=== PATIENT | female | born 1955 | race Caucasian/White ===

== ENCOUNTER 2018-02-18 15:42 | Inpatient (IN) | payer OTHER ==
[~2018-02-18] VITALS: Ht 165.1 cm; Wt 84.8 kg
[~2018-02-18 15:42] MED LIST: AUGMENTIN 500M500 MG PO; ROBITUSSIN W/CO10 ML PO
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
[2018-02-18 16:27] LABS: ABSOLUTE BASOPHIL COUNT 0.2 /CUMM (0.0-0.2); ABSOLUTE EOSINOPHIL COUNT 0 /CUMM (0.0-0.7); ABSOLUTE GRANULOCYTE CT 10.8 /CUMM (1.4-6.5); ABSOLUTE LYMPH COUNT 0.4 /CUMM (1.2-3.4); ABSOLUTE MONOCYTE COUNT 0.5 /CUMM (0.10-0.60); BASOPHIL % 1.4 % (0.0-2.0); EOSINOPHIL % 0.2 % (0-5); HEMATOCRIT 31.3 % (37-47); MEAN CORPUSCULAR HGB 31.2 PG (27.0-31.0); MEAN CORPUSCULAR HGB CONC 33.4 G/DL (33.0-37.0); MEAN CORPUSCULAR VOLUME 93.3 FL (81.0-99.0); MEAN PLATELET VOLUME 7.4 FL (7.4-10.4); PLATELET COUNT 381 /CUMM (130-400); RBC DISTRIBUTION WIDTH 15.3 % (11.5-14.5); RED BLOOD CELL CT 3.35 /CUMM (4.20-5.40); WHITE BLOOD CELL COUNT 11.9 /CUMM (4.8-10.8)
[2018-02-18 16:48] LABS: GRANULOCYTE % 90.2 % (42.2-75.2)
--- NOTE | 2018-02-18 17:10 | CT SCAN REPORT ---
EXAMINATION: CT HEAD WITHOUT CONTRAST CLINICAL INFORMATION: Tremors and disorientation. COMPARISON: None TECHNIQUE: Contiguous axial imaging was performed from the skull base to vertex without intravenous administration of contrast. The study is somewhat limited due to motion artifacts. DLP: 770.4 mGy-cm FINDINGS: There is no evidence of acute intracranial hemorrhage or territorial infarction. No abnormal mass effect or midline shift is seen. Yoon to white matter differentiation is well preserved. No extra-axial fluid collections are identified. The ventricles are normal in size. There is no abnormal attenuation within the brain parenchyma. The osseous structures and soft tissues are normal. The mastoid air cells and visualized portions of the paranasal sinuses are well aerated. IMPRESSION: No acute intracranial pathology.
[2018-02-18] MEDS ORDERED: PERCOCET 7.5-31 EACH PO (18:21)
[2018-02-18] MEDS ORDERED: CYCLOBENZAPRINE10 M1 PO (18:21)
[2018-02-18] MEDS ORDERED: MORPHINE SULFAT30 M3 PO (18:22)
[2018-02-18] MEDS ORDERED: EFFEXOR XR150 M1 PO (18:22)
[2018-02-18] MEDS ORDERED: LISINOPRIL-HCT1 EACH PO (18:22)
[2018-02-18] MEDS ORDERED: LIPITOR20 M2 PO (18:22)
[2018-02-18 18:35] LABS: PT 10.7 SEC (9.4-12.5); PTT 31 SEC (25-37)
--- NOTE | 2018-02-18 19:41 | RADIOLOGY REPORT ---
EXAMINATION: XR PORTABLE CHEST CLINICAL INFORMATION: Renal failure. COMPARISON: None TECHNIQUE: Portable frontal view of the chest was obtained. FINDINGS: The lungs are hypoexpanded with increased bilateral hilar markings suggestive of increased pulmonary vascularity. Heart size is borderline enlarged. No consolidation seen. No gross bony abnormality seen. IMPRESSION: Borderline cardiomegaly with increased pulmonary vascularity suggestive of mild congestion. The lungs are hypoexpanded but clear.
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
--- NOTE | 2018-02-18 23:45 | Sepsis Event Note ---
Sepsis Event Note Severe Sepsis Severe Sepsis Present: Yes Septic Shock Septic Shock Present: Yes Sepsis Focused Exam Sepsis Cardiac Exam: Tachycardia Sepsis Resp Exam: dec breath sounds b/l Sepsis Cap Refill Exam: <2 Sec Sepsis Peripheral Pulse Exam: Weak Sepsis Peripheral Pulse Location: Radial Sepsis Skin Exam (color): Flushed Skin Temp/Moisture Exam: Warm/Dry
--- NOTE | 2018-02-18 23:53 | RADIOLOGY REPORT ---
EXAMINATION: XR PORTABLE CHEST CLINICAL INFORMATION: Congestion COMPARISON: Radiograph from earlier today TECHNIQUE: Portable frontal view of the chest was obtained. FINDINGS: Elevation of the right hemidiaphragm. Central vascular prominence without overt edema. No pleural effusion or pneumothorax. No dense consolidation. The cardiomediastinal silhouette is unchanged. IMPRESSION: Central vascular prominence without overt edema.
[2018-02-19] VITALS: BP 78/00
[2018-02-19 02:50] LABS: ABSOLUTE BASOPHIL COUNT 0.1 /CUMM (0.0-0.2); ABSOLUTE EOSINOPHIL COUNT 0 /CUMM (0.0-0.7); ABSOLUTE GRANULOCYTE CT 11.5 /CUMM (1.4-6.5); ABSOLUTE LYMPH COUNT 0.7 /CUMM (1.2-3.4); BASOPHIL % 0.7 % (0.0-2.0); EOSINOPHIL % 0.2 % (0-5); GRANULOCYTE % 86.3 % (42.2-75.2); HEMATOCRIT 29.9 % (37-47); MEAN CORPUSCULAR HGB 31.2 PG (27.0-31.0); MEAN CORPUSCULAR HGB CONC 32.9 G/DL (33.0-37.0); MEAN CORPUSCULAR VOLUME 94.8 FL (81.0-99.0); MEAN PLATELET VOLUME 7.3 FL (7.4-10.4); PLATELET COUNT 403 /CUMM (130-400); RBC DISTRIBUTION WIDTH 15.6 % (11.5-14.5); RED BLOOD CELL CT 3.16 /CUMM (4.20-5.40); WHITE BLOOD CELL COUNT 13.3 /CUMM (4.8-10.8)
--- NOTE | 2018-02-19 06:19 | Proc Note Internal Medicine ---
Medicine Procedure Procedure Date: 02/19/18 Medical Procedure(s): central venous cath place Estimated Blood Loss: less than 50ml Anesthesia: local monitored anesthesi Procedure Findings: 02/19/2018 0100 around A time-out was completed verifying correct patient, procedure, site, positioning , and special equipment if applicable. The patients right ingunial was prepped and draped in sterile fashion. 1% Lidocaine was used to anesthetize the surrounding skin area. A triple lumen catheter was introduced into the the right femoral vein under ultrasound guidance. The catheter was threaded smoothly over the guide wire and appropriate blood return was obtained. Each lumen of the catheter was evacuated of air and flushed with sterile saline. The catheter was then sutured in place to the skin and a sterile dressing applied. Perfusion to the extremity distal to the point of catheter insertion was checked and found to be adequate. Attending and resident were present for the entire procedure.
--- NOTE | 2018-02-19 06:59 | RADIOLOGY REPORT ---
EXAMINATION: XR PORTABLE CHEST CLINICAL INFORMATION: Congestion COMPARISON: 02/18/2018. TECHNIQUE: Portable frontal view of the chest was obtained. FINDINGS: Cardiac leads overlie the chest. Elevated right hemidiaphragm. Decreased Central vascular prominence. No pleural effusion or pneumothorax. No dense consolidation. The cardiomediastinal silhouette is within normal limits. No acute osseous abnormality. IMPRESSION: Elevated right hemidiaphragm. Improvement of prior vascular congestion.
[2018-02-19 07:28] LABS: ABSOLUTE BASOPHIL COUNT 0 /CUMM (0.0-0.2); ABSOLUTE EOSINOPHIL COUNT 0 /CUMM (0.0-0.7); ABSOLUTE GRANULOCYTE CT 8.4 /CUMM (1.4-6.5); ABSOLUTE LYMPH COUNT 0.6 /CUMM (1.2-3.4); ABSOLUTE MONOCYTE COUNT 0.8 /CUMM (0.10-0.60); BASOPHIL % 0 % (0.0-2.0); EOSINOPHIL % 0.3 % (0-5); HEMATOCRIT 30.1 % (37-47); MEAN CORPUSCULAR HGB 31.6 PG (27.0-31.0); MEAN CORPUSCULAR HGB CONC 32.9 G/DL (33.0-37.0); MEAN CORPUSCULAR VOLUME 95.9 FL (81.0-99.0); MEAN PLATELET VOLUME 7.2 FL (7.4-10.4); PLATELET COUNT 363 /CUMM (130-400); RBC DISTRIBUTION WIDTH 16.2 % (11.5-14.5); RED BLOOD CELL CT 3.14 /CUMM (4.20-5.40); WHITE BLOOD CELL COUNT 9.8 /CUMM (4.8-10.8)
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
[2018-02-19 08:00] VITALS: BP 122/60
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
--- NOTE | 2018-02-19 09:46 | RADIOLOGY REPORT ---
EXAMINATION: XR PORTABLE CHEST CLINICAL INFORMATION: ET tube position. COMPARISON: Chest x-ray dated 02/19/2018 and several other older exams. TECHNIQUE: Portable AP semierect view of the chest was obtained. FINDINGS: An endotracheal tube is in place with tip approximately 2.7 cm above the manuel. Enteric tube is seen coursing into the abdomen with tip not included. Multiple EKG leads overlie the chest. Low lung volumes are seen with slight elevation of the right hemidiaphragm and bibasilar and left midlung linear reticular opacities, consistent with subsegmental atelectasis. Mild central vascular congestion is seen without overt pulmonary edema. No dense consolidation, effusion or pneumothorax is seen. Bony structures are grossly unremarkable. IMPRESSION: 1. Endotracheal tube tip approximately 2.7 cm above the manuel. 2. Enteric tube courses into the abdomen with tip not included. 3. Low lung volumes with left midlung and bibasilar linear atelectatic changes. 4. Mild central vascular congestion, similar to prior exam. No overt pulmonary edema.
--- NOTE | 2018-02-19 13:06 | ECHOCARDIOGRAM REPORT ---
FÉLIX MONTE Age: 62 : 1955 Gender: F Exam Date: 02/19/2018 11:34 Exam Location: [facility] Ht (in): 65 Wt (lb): 170 BSA: 1.90 BP: 143 / 75 Ordering Physician: Han Carrasquillo MD Referring Physician: Han Carrasquillo MD Technologist: Chaparro Yarbrough [facility] Room Number: 114-1 Indications: Hypotension Rhythm: Sinus Technical Quality: Fair, Technically difficult study FINDINGS Left Ventricle Normal global left ventricular size, wall thickness, systolic function with no obvious regional wall motion abnormalities. Normal left ventricular ejection fraction estimated at 60-65%. Right Ventricle Normal right ventricular size and function. Right Atrium Normal right atrial size. Left Atrium Left atrial size at the upper limits of normal. Mitral Valve Structurally normal mitral valve. Aortic Valve Trileaflet aortic valve. Focal thickening of the aortic valve cusps. No aortic stenosis. No aortic regurgitation. Tricuspid Valve Tricuspid valve not well visualized, grossly normal. Trace to mild tricuspid regurgitation. Right ventricular systolic pressure estimated at 36 mmHg. Pulmonic Valve Pulmonic valve not well visualized, grossly normal. Pericardium Minimal pericardial effusion (normal variant). Great Vessels Normal size aortic root and proximal ascending aorta. CONCLUSIONS 1. This was a technically difficult examination 2. Minimal aortic sclerosis is present with no valvular stenosis or insufficiency 3. The mitral valve appears normal 4. A physiologic pericardial effusion is present which is hemodynamically insignificant 5. The left ventricular chamber size and systolic function appear normal. 6. Minimal to mild tricuspid insufficiency is present with no evidence of pulmonary hypertension Malik Ray M.D. (Electronically Signed) Final Date: 19 February 2018 13:05 MEASUREMENTS (Male / Female) Normal Values 2D ECHO LV Diastolic Diameter PLAX 4.2 cm 4.2 - 5.9 / 3.9 - 5.3 cm LV Systolic Diameter PLAX 2.9 cm 2.1 - 4.0 cm LV Fractional Shortening PLAX 31.0 % 25 - 46 % LV Ejection Fraction 2D Teich 59.0 % IVS Diastolic Thickness 0.9 cm LVPW Diastolic Thickness 1.0 cm LV Relative Wall Thickness 0.5 RV Internal Dim ED PLAX 2.9 cm 1.9 - 3.8 cm LVOT Diameter 2.0 cm Aortic Root Diameter 3.0 cm LA Systolic Diameter LX 3.3 cm 3.0 - 4.0 / 2.7 - 3.8 cm LA Volume 41.0 cm 18 - 58 / 22 - 52 cm Ascending Aorta Diameter 3.1 cm DOPPLER AV Peak Velocity 207.0 cm/s AV Peak Gradient 17.1 mmHg AV Mean Velocity 126.0 cm/s AV Mean Gradient 8.0 mmHg AV Velocity Time Integral 36.7 cm LVOT Peak Velocity 127.0 cm/s LVOT Peak Gradient 6.5 mmHg LVOT Mean Velocity 83.2 cm/s LVOT Mean Gradient 3.0 mmHg LVOT Velocity Time Integral 23.5 cm LVOT Stroke Volume 73.8 cm AV Area Cont Eq vti 2.0 cm AV Area Cont Eq pk 1.9 cm MV Peak Velocity 109.0 cm/s MV Peak Gradient 4.8 mmHg MV Mean Velocity 72.6 cm/s MV Mean Gradient 2.0 mmHg Mitral E Point Velocity 82.4 cm/s Mitral A Point Velocity 89.8 cm/s Mitral E to A Ratio 0.9 MV PHT Velocity 102.0 cm/s MV Deceleration [place] 425.0 cm/s MV Pressure Half Time 72.0 ms MV Area PHT 3.1 cm MV Deceleration Time 236.0 ms TR Peak Velocity 267.0 cm/s TR Peak Gradient 28.5 mmHg Right Atrial Pressure 10.0 mmHg Pulmonary Artery Systolic Pressure 38.5 mmHg Right Ventricular Systolic Pressure 38.5 mmHg PV Peak Velocity 130.0 cm/s PV Peak Gradient 6.8 mmHg PV Mean Velocity 88.0 cm/s PV Mean Gradient 4.0 mmHg PV Velocity Time Integral 26.2 cm LV E' Lateral Velocity 12.2 cm/s Mitral E to LV E' Lateral Ratio 6.8 LV E' Septal Velocity 6.9 cm/s Mitral E to LV E' Septal Ratio 11.9
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
[2018-02-19 16:00] VITALS: BP 117/57
--- NOTE | 2018-02-19 16:31 | Event Note ---
Event Note Event Note: I have personally seen and examined the patient and have reviewed the patient's chart once again. The patient is minimally responsive, no longer twitching and remains on a propofol drip. Her ventilator settings have been changed and a follow-up blood gas was much improved noting the pH is 7.39, PCO2 25, PO2 135 and a bicarb of 14. I discussed the issues with the patient's and updated him on her current clinical status. The patient is in the process of going for Beny catheter placement. Problems: 1. Acute respiratory failure, on mechanical ventilation, secondary to inability to protect airway and compensate for ongoing acidosis. 2. Combined metabolic and nonmetabolic anion gap acidosis. The patient has evidence of rhabdomyolysis and acute renal failure. 3. Hypovolemic shock. 4. Acute kidney injury in the setting of recent trauma with elevated CPK. It is not clear if the patient's CPK was initially higher and improved which could have caused renal failure. Additionally the patient was taking lisinopril, hydrochlorothiazide and NSAIDs. 5. Toxic metabolic encephalopathy, uremic encephalopathy. 6. Possible aspiration pneumonia/pneumonitis. 7. Chronic pain, on chronic opiate regimen. 8. Mildly positive troponin, likely demand ischemia. Plan: * Continue propofol for an SAS of 3. * Continue current ventilator settings, however decrease respiratory rate to 14 breath/min. * No need for repeat EKG. * Continue with aggressive IV hydration. * Follow-up recommendations from nephrology, appreciate input. * Dialysis if recommended by nephrology. * Continue to get labs every 6 hours today. * Monitor electrolytes closely and adjust as necessary. * Wean levofed down to off, maintain systolic blood pressure greater than 90 mmHg. * Follow-up culture data. * Continue vancomycin and moxifloxacin empirically. * Monitor on seizure precautions. * Will follow-up neurology's recommendations. * Check EKGs daily, consult cardiology if any cardiac issues arise. * Vent bundle/DVT and GI prophylaxis at all times. * The patient remains critically ill and requires close follow-up. * Dr. Bateman will be covering for the weekend.
--- NOTE | 2018-02-19 16:43 | INTERVENTIONAL RADIOLOGY RPT ---
PROCEDURE: ULTRASOUND AND FLUOROSCOPICALLY GUIDED RIGHT INTERNAL JUGULAR VEIN TEMPORARY DIALYSIS CATHETER PLACEMENT INTERVENTIONAL RADIOLOGIST: Moe Harman M.D. CLINICAL HISTORY: 62-year-old female with acute renal failure. Request made for placement of temporary dialysis catheter. COMPARISON: Same day chest x-ray MEDICATION: 1% lidocaine was used for local anesthetic. FLUOROSCOPY TIME: 0.8 minutes NUMBER OF IMAGES: 4 images TECHNIQUE: Informed consent was obtained from the patient's prior to the procedure. During this process, the procedure and potential alternatives were explained along with the intended outcome and benefits. The risks of the procedure, including the possibility of an unsuccessful procedure, as well as the risk of not doing the procedure were discussed. The patient's was given the opportunity to ask questions regarding the procedure. A consent form which documents this discussion was placed in the medical record. A timeout procedure was performed. Following informed consent the patient was placed supine on the fluoroscopic table. The right neck and chest were prepped and draped in usual sterile fashion. All elements of maximal sterile barrier technique were followed including use of cap, mask, sterile gown, sterile gloves, a sterile full body drape and hand hygiene. The skin was prepared with 2% chlorhexidine for cutaneous antisepsis and sterile ultrasound preparation with sterile gel and probe cover was performed when applicable. Using ultrasound guidance the right internal jugular vein was localized. Ultrasound was utilized to assess the vascular structures for access. A standard puncture into the right internal jugular vein was performed with a Micro-Stick system. The wire was advanced into the IVC to confirm venous placement. Over the wire dilatation was performed and a temporary hemodialysis catheter was advanced over the wire. Catheter terminates in the proximal right atrium. Silk suture was utilized for catheter securement. The patient tolerated the procedure well. The patient was transferred back to the floor in stable condition. ULTRASOUND-GUIDED VASCULAR ACCESS: Ultrasound was used to identify the right internal jugular vein. The right internal jugular vein was confirmed to be patent. Real time imaging confirmed needle access into the right internal jugular vein. An image was saved for permanent recording in PACS. IMPRESSION: Successful placement of temporary hemodialysis catheter via the right internal jugular vein.
--- NOTE | 2018-02-19 18:51 | ELECTROENCEPHALOGRAM REPORT ---
Electroencephalogram Report Electroencephalogram Results Date of service: 02/19/18 Attending MD: Nikkie Menezes MD Ssas Developer: Lety Fair EEG Number: [id number] Test Utilizes: 10-20 system, 21 lead 18 channel digital recording Pertinent Hx/Physical/Neuro Findings/Clin Diagnosis: Altered mental status with twitching of extremities, r/o seizures Inpatient Medications: Current Medications Sig/Davon Start time Last Medication Dose Route Stop Time Status Admin Albuterol Sulfate 3 ML ONCE ONE 02/18 2315 DC INH 02/19 2316 Atorvastatin Calcium 20 MG DAILY 02/19 900 CAN PO Dextrose 25 GM ONCE ONE 02/19 0130 DC 02/19 IV 02/19 013 0126 Dextrose 25 GM ONCE ONE 02/18 2330 DC IV 02/18 233 Dextrose 0 .STK-MED ONE 02/18 2318 DC IV Dextrose 25 GM ONCE ONE 02/18 2145 DC 02/18 IV 02/18 2146 2320 Heparin Sodium 0 .STK-MED ONE 02/19 1440 DC (Porcine) IV Heparin Sodium 5,000 UNIT Q8 02/18 2200 DC 02/19 (Porcine) SC 0547 Insulin Human Regular 10 UNITS ONCE ONE 02/18 233 DC IV 02/18 2331 Insulin Human Regular 0 .STK-MED ONE 02/18 231 DC .ROUTE Insulin Human Regular 10 UNITS ONCE ONE 02/18 2145 DC / IV 02/18 2146 2320 Lidocaine 0 .STK-MED ONE 02/19 1440 DC .ROUTE Lorazepam 0.5 MG ONCE ONE 02/19 0315 DC 02/19 IV 02/19 0316 0311 Lorazepam 0 .STK-MED ONE 02/19 0230 DC .ROUTE Lorazepam 1 MG ONCE ONE 02/18 2230 DC / IV 02/18 2231 2240 Lorazepam 0 .STK-MED ONE 02/18 2224 DC .ROUTE Moxifloxacin HCl 400 MG Q24H 02/20 0100 AC N/A 1 UNIT IV Moxifloxacin HCl 400 MG Q24H 02/19 2300 CAN IV Moxifloxacin HCl 400 MG Q24H 02/18 2315 DC 02/19 IV 02/18 2316 0110 Non-Formulary 0 SEE ADMIN CRITERIA 02/20 0845 CAN Medication ANY Norepinephrine 0 .STK-MED ONE 02/19 08 DC IV Norepinephrine 8 MG Q24H 02/19 0245 AC 08 Dextrose/Water 500 ML IV 0358 Norepinephrine 4 MG Q24H / 0015 DC 02/18 Dextrose/Water 250 ML IV 2315 Norepinephrine 0 .STK-MED ONE 02/18 2312 DC IV Propofol 1,000 MG Q12H 02/19 0900 AC 08 N/A 1 UNIT IV 0941 Propofol 0 .STK-MED ONE 02/19 0855 DC IV Sodium Bicarbonate 50 MEQ ONCE ONE 02/19 0015 DC 02/19 IV 02/19 0016 0301 Sodium Chloride 1,000 ML BOLUS ONE 02/18 2300 DC / IV 02/19 0059 2322 Sodium Chloride 1,000 ML BOLUS ONE 02/18 2300 DC / IV 02/18 2359 2321 Sodium Chloride 1,000 ML BOLUS ONE 02/18 2300 DC / IV 02/18 2359 0025 Sodium Chloride 1,000 ML BOLUS ONE 02/18 2145 DC / IV 02/18 2344 2240 Sodium Chloride 1,000 ML Q6H 02/18 2145 AC 02/19 IV 0941 Sodium Chloride 1,000 ML BOLUS ONE 02/18 1815 DC 08/ IV 02/18 2014 1825 Sodium Polystyrene 60 ML ONCE ONE 02/18 2330 DC Sulfonate IN 02/18 2331 Sodium Polystyrene 60 ML ONCE ONE 02/18 2145 DC / Sulfonate IN 02/18 2146 2336 Succinylcholine 0.3 MG ONCE ONE 02/19 0915 CAN Chloride IV 02/19 0916 Succinylcholine 0.1 MG ONCE ONE 02/19 0900 CAN Chloride IV 02/19 0901 Vancomycin HCl 1,000 MG Q24H 02/19 2300 AC Dextrose/Water 250 ML IV Vancomycin HCl 1,000 MG ONCE ONE 02/18 2315 DC 02/19 Sodium Chloride 250 ML IV 02/19 0014 0040 Vecuronium Parsons 4 MG ONCE ONE 02/19 1015 DC 02/19 IV 02/19 1016 0900 Venlafaxine HCl 150 MG 0800 02/19 0800 CAN PO Interpretation: A portable recording was done in the MICU on this intubated patient receiving diprovan The background is composed of moderate amplitude generalized slow activity in the theta and delta frequency range. No focal, lateralized or epileptiform abnormalities are found Activation procedures were deferred Impression: EEG abnormal due to moderate to marked generalized slowing c/w a diffuse metabolic encephalopathy. No epileptiform abnormalities.
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
[2018-02-19 22:53] LABS: ABSOLUTE BASOPHIL COUNT 0.1 /CUMM (0.0-0.2); ABSOLUTE EOSINOPHIL COUNT 0 /CUMM (0.0-0.7); ABSOLUTE GRANULOCYTE CT 4.6 /CUMM (1.4-6.5); ABSOLUTE LYMPH COUNT 0.9 /CUMM (1.2-3.4); ABSOLUTE MONOCYTE COUNT 0.6 /CUMM (0.10-0.60); BASOPHIL % 1.3 % (0.0-2.0); EOSINOPHIL % 0.4 % (0-5); GRANULOCYTE % 74.2 % (42.2-75.2); HEMATOCRIT 25.4 % (37-47); MEAN CORPUSCULAR HGB 31.2 PG (27.0-31.0); MEAN CORPUSCULAR HGB CONC 33.5 G/DL (33.0-37.0); MEAN CORPUSCULAR VOLUME 93.4 FL (81.0-99.0); MEAN PLATELET VOLUME 7.4 FL (7.4-10.4); PLATELET COUNT 279 /CUMM (130-400); RBC DISTRIBUTION WIDTH 15.7 % (11.5-14.5); RED BLOOD CELL CT 2.72 /CUMM (4.20-5.40); WHITE BLOOD CELL COUNT 6.2 /CUMM (4.8-10.8)
[2018-02-20] VITALS: BP 104/58
[2018-02-20 05:15] LABS: ABSOLUTE BASOPHIL COUNT 0 /CUMM (0.0-0.2); ABSOLUTE EOSINOPHIL COUNT 0.1 /CUMM (0.0-0.7); ABSOLUTE LYMPH COUNT 0.9 /CUMM (1.2-3.4); ABSOLUTE MONOCYTE COUNT 0.7 /CUMM (0.10-0.60); BASOPHIL % 0.4 % (0.0-2.0); EOSINOPHIL % 1.1 % (0-5); GRANULOCYTE % 71.3 % (42.2-75.2); HEMATOCRIT 25.6 % (37-47); MEAN CORPUSCULAR HGB 31.2 PG (27.0-31.0); MEAN CORPUSCULAR HGB CONC 33.4 G/DL (33.0-37.0); MEAN CORPUSCULAR VOLUME 93.4 FL (81.0-99.0); MEAN PLATELET VOLUME 7.4 FL (7.4-10.4); PLATELET COUNT 289 /CUMM (130-400); RBC DISTRIBUTION WIDTH 15.9 % (11.5-14.5); RED BLOOD CELL CT 2.74 /CUMM (4.20-5.40); WHITE BLOOD CELL COUNT 5.7 /CUMM (4.8-10.8)
[2018-02-20 08:00] VITALS: BP 106/64
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
--- NOTE | 2018-02-20 09:26 | RADIOLOGY REPORT ---
EXAMINATION: XR PORTABLE CHEST CLINICAL INFORMATION: Lines and tubes check. Intubated patient. COMPARISON: Several prior chest x-rays, most recent of which is dated 02/19/2018. TECHNIQUE: Portable AP erect view of the chest was obtained. FINDINGS: Evaluation is limited with the lung apices barely included on the exam and low lung volumes seen. EKG leads overlie the chest. An enteric tube is seen with tip in region of the gastric antrum. The endotracheal tube is low in position with tip extending to within 1 cm of the manuel. A right jugular line is in place with tip poorly visualized but extending to the distal SVC. The cardiomediastinal silhouette is within normal limits in size. Low lung volumes are seen with slight asymmetric elevation of the right hemidiaphragm. There is central vascular congestion and bibasilar atelectatic change. No focal consolidation, effusion or pneumothorax is seen. Bony structures grossly unremarkable. IMPRESSION: 1. Endotracheal tube tip is low in position extending to within 1 cm of the manuel. Repositioning of the endotracheal tube is advised with repeat radiograph taken to reassess position. 2. Enteric tube extends into the region of the gastric antrum. 3. Low lung volumes with bibasilar atelectasis and mild central vascular congestion. No focal pneumonia or evidence of edema. This result was discussed with Dr. Presley 02/20/2018, 920 AM and it was ascertained that the content and urgency of this report was understood at the time of direct communication.
--- NOTE | 2018-02-20 11:34 | RADIOLOGY REPORT ---
EXAMINATION: XR PORTABLE CHEST CLINICAL INFORMATION: ET tube position. COMPARISON: Chest x-ray from earlier today. TECHNIQUE: Portable AP semierect view of the chest was obtained. FINDINGS: The endotracheal tube tip is now seen approximately 2.4 cm above the manuel. Enteric tube is seen projected in region of the gastric antrum/pylorus. Right jugular central venous line extends into the mid SVC with tip poorly visualized. The cardiomediastinal silhouette is normal. Low lung volumes are seen with bibasilar opacities, consistent with atelectasis. Mild central vascular congestion is seen. Evaluation of lungs suboptimal due to overexposure of the film. Bony structures grossly unremarkable. IMPRESSION: 1. Endotracheal tube tip approximately 2.4 cm above the manuel. 2. Enteric tube tip projects in region of the gastric antrum/pylorus. 3. Right jugular central venous line tip in region of the mid SVC. 4. Low lung volumes with bibasilar atelectasis and mild central vascular congestion.
[2018-02-20 11:55] VITALS: BP 122/68
--- NOTE | 2018-02-20 12:58 | PN- Nephrology ---
Assessment/Plan Nephrology Assessment: TR - Miraculously resolved with time and IVF - must have been multifactorial ATN (2/2 mild rhabdo, NSAID use, RAAS inhibition, diuretic - all while volume depleted) + pre-renal azotemia. SCr still slightly above baseline so I think she can continue on IVF as tolerated and while NPO on vent but may want to decrease the rate. Clearly her dialysis catheter can be taken out by IR non- urgently on Thursday. Suggestion: -Can remove dialysis catheter (can have IR remove on Thursday) -Decrease rate of IVF to 75cc/hr - stop if worsened oxygenation Please call [phone] with ?'s Subjective Subjective: SCr down to 1.2 4.6L UOP yesterday; 1.4L UOP today - continues on IVF Remains intubated/sedated Objective Vital Signs and I&Os Vital Signs Date Time Temp Pulse Resp B/P B/P Pulse O2 O2 Flow FiO2 Mean Ox Delivery Rate 02/20 1215 30 02/20 1200 100 Ventilator 30% 02/20 1155 98.2 89 18 122/68 100 Ventilator 30% 02/20 0840 35 02/20 0800 100 Ventilator 35% 02/20 0800 97.6 92 18 106/64 100 Ventilator 35% 02/20 0543 35 02/20 0400 96 Ventilator 35% 02/20 0307 35 02/20 0259 99 18 104/57 /11 0041 35 / 0000 96 Ventilator 35% / 0000 98.6 106 18 104/58 96 Ventilator 35% / 2154 35 08/ 2000 97 Ventilator 35% 02/19 1859 35 08/10 1634 35 08/ 1600 99 Ventilator 35% /10 1600 99.0 105 17 117/57 99 Ventilator 35% /10 1600 99.0 105 19 117/57 99 Ventilator 35% Intake & Output 02/20 1600 02/20 0400 02/19 1600 02/19 0400 02/18 1600 02/18 0400 Intake Total 1349 1641 7616.6 Output Total 1540 2300 2575 210 Balance -191 659 5041.6 -210 Intake, IV 1349 1641 7556.6 Intake, Oral 0 0 Intake, Other 60 Number 0 Bowel Movements Output, 100 50 150 Gastric Drainage Output, Urine 1440 2250 2425 210 Patient 173 lb 170 lb 130 lb Weight Weight Bed scale Standing Scale Reported by Patient Measurement Method Physical Exam: Gen - intubated/sedated HEENT - +ETT CV - RRR, no m/r/g Chest - clear mechanical breath sounds anteriorly Abd - soft, NTND Ext - warm, no significant pitting edema Neuro - AOX3, grossly nonfocal Current Medications: Current Medications Sig/Davon Start time Last Medication Dose Route Stop Time Status Admin Dextrose 25 GM ONCE ONE 02/20 900 DC 02/20 IV 02/20 09 0909 Fentanyl Citrate 0 .STK-MED ONE 02/20 09 DC .ROUTE Fentanyl Citrate 1,000 MCG Q24H 02/20 900 02/20 Dextrose/Water 250 ML IV 1050 Heparin Sodium 0 .STK-MED ONE 02/19 144 DC (Porcine) IV Lidocaine 0 .STK-MED ONE 02/19 144 DC .ROUTE Lorazepam 2 MG ONE ONE 02/19 2300 DC 02/19 IV 02/19 230 2304 Lorazepam 0 .STK-MED ONE 02/19 225 DC .ROUTE Moxifloxacin HCl 400 MG Q24H 02/20 0100 DC 02/20 N/A 1 UNIT IV 0119 Norepinephrine 8 MG Q24H 02/19 0245 DC 02/19 Dextrose/Water 500 ML IV 0358 Pantoprazole Sodium 40 MG DAILY 02/20 900 02/20 IV 0906 Propofol 0 .STK-MED ONE 02/20 0307 DC IV Propofol 1,000 MG Q12H 02/19 09 02/20 N/A 1 UNIT IV 0910 Sodium Chloride 1,000 ML Q6H 02/18 2145 02/20 IV 0910 Vancomycin HCl 1,000 MG Q24H 02/20 0300 DC 02/20 Sodium Chloride 250 ML IV 0258 Vancomycin HCl 1,000 MG Q24H 02/19 2300 DC Dextrose/Water 250 ML IV Results Pertinent Lab Results: Laboratory Tests 02/20 02/19 0410 2120 Chemistry Sodium (137 - 145 mmol/L) 140 137 Potassium (3.5 - 5.1 mmol/L) 4.2 4.6 Chloride (98 - 107 mmol/L) 114 H 111 H Carbon Dioxide (22 - 30 mmol/L) 20 L 20 L Anion Gap (5 - 16) 6 6 BUN (7 - 17 mg/dL) 49 H 64 H Creatinine (0.5 - 1.0 mg/dL) 1.2 H 1.9 H Estimated GFR (>60 ml/min) 46 L 27 L Glucose (65 - 99 mg/dL) 82 77 Calcium (8.4 - 10.2 mg/dL) 7.4 L 7.3 L Phosphorus (2.5 - 4.5 mg/dL) 3.0 3.7 Magnesium (1.6 - 2.3 mg/dL) 2.8 H 2.8 H Total Bilirubin (0.2 - 1.3 mg/dL) 0.4 0.4 AST (14 - 36 U/L) 43 H 49 H ALT (9 - 52 U/L) 60 H 62 H Albumin (3.5 - 5.0 g/dL) 2.7 L 2.7 L Hematology CBC w Diff NO MAN DIFF REQ NO MAN DIFF REQ WBC (4.8 - 10.8 /CUMM) 5.7 6.2 RBC (4.20 - 5.40 /CUMM) 2.74 L 2.72 L Hgb (12.0 - 16.0 G/DL) 8.6 L 8.5 L Hct (37 - 47 %) 25.6 L 25.4 L MCV (81.0 - 99.0 FL) 93.4 93.4 MCH (27.0 - 31.0 PG) 31.2 H 31.2 H MCHC (33.0 - 37.0 G/DL) 33.4 33.5 RDW (11.5 - 14.5 %) 15.9 H 15.7 H Plt Count (130 - 400 /CUMM) 289 279 MPV (7.4 - 10.4 FL) 7.4 7.4 Gran % (42.2 - 75.2 %) 71.3 74.2 Lymphocytes % (20.5 - 51.1 %) 15.5 L 14.1 L Monocytes % (1.7 - 9.3 %) 11.7 H 10 H Eosinophils % (0 - 5 %) 1.1 0.4 Basophils % (0.0 - 2.0 %) 0.4 1.3 Absolute Granulocytes (1.4 - 6.5 /CUMM) 4.0 4.6 Absolute Lymphocytes (1.2 - 3.4 /CUMM) 0.9 L 0.9 L Absolute Monocytes (0.10 - 0.60 /CUMM) 0.7 H 0.6 Absolute Eosinophils (0.0 - 0.7 /CUMM) 0.1 0 Absolute Basophils (0.0 - 0.2 /CUMM) 0 0.1 Miscellaneous Ref Lab Test Result Pending Toxicology Random Vancomycin (ug/ml) 5.9 02/19 02/19 02/19 1430 1140 1056 Blood Gas pH (7.35 - 7.45 PH) 7.39 7.49 H pCO2 (35 - 45 TORR) 25 L 16 L pO2 (80 - 100 TORR) 135 H 215 H HCO3 (21 - 28 MEQ/L) 14 L 12 L ABG O2 Sat (Measured) (>96.0 %) 98.0 99.0 Carboxyhemoglobin (1.5 - 5.0 %) 0.4 L 0.3 L O2 Concentration % 35 50% Respiration Rate (BPM) 18 28 O2 Delivery Method VENT AC Vent Mode VC/AC VC Expiratory Pressure (CMH2O/P) 5 5 Tidal Volume (CC) 550 600 Chemistry Sodium (137 - 145 mmol/L) 137 Potassium (3.5 - 5.1 mmol/L) 4.9 Chloride (98 - 107 mmol/L) 107 Carbon Dioxide (22 - 30 mmol/L) 15 L Anion Gap (5 - 16) 15 BUN (7 - 17 mg/dL) 92 H Creatinine (0.5 - 1.0 mg/dL) 4.8 H Estimated GFR (>60 ml/min) 9 L Glucose (65 - 99 mg/dL) 124 H Calcium (8.4 - 10.2 mg/dL) 7.3 L Phosphorus (2.5 - 4.5 mg/dL) 5.7 H Magnesium (1.6 - 2.3 mg/dL) 2.9 H Total Bilirubin (0.2 - 1.3 mg/dL) 0.2 AST (14 - 36 U/L) 68 H ALT (9 - 52 U/L) 76 H Creatine Kinase (30 - 135 U/L) 1415 H Albumin (3.5 - 5.0 g/dL) 3.1 L Miscellaneous Phlebotomy Draw Site RIGHT RADIAL RIGHT RADIAL 02/19 02/19 0815 0645 Blood Gas pH (7.35 - 7.45 PH) 7.18 *L pCO2 (35 - 45 TORR) 46 H pO2 (80 - 100 TORR) 85 HCO3 (21 - 28 MEQ/L) 16 L ABG O2 Sat (Measured) (>96.0 %) 95.0 L Carboxyhemoglobin (1.5 - 5.0 %) 0.3 L O2 Concentration % 2L O2 Delivery Method NC Chemistry Sodium (137 - 145 mmol/L) 135 L Potassium (3.5 - 5.1 mmol/L) 5.4 H Chloride (98 - 107 mmol/L) 105 Carbon Dioxide (22 - 30 mmol/L) 16 L Anion Gap (5 - 16) 14 BUN (7 - 17 mg/dL) 99 H Creatinine (0.5 - 1.0 mg/dL) 6.1 *H Estimated GFR (>60 ml/min) 7 L BUN/Creatinine Ratio (7 - 25 %) 16.2 Serum Osmolality (285 - 295 MOSM/KG) 325 H Phosphorus (2.5 - 4.5 mg/dL) 9.4 H Magnesium (1.6 - 2.3 mg/dL) 2.9 H 25-OH Vitamin D Total (30 - 100 ng/ml) 21.6 L Hematology CBC w Diff MAN DIFF ORDERED WBC (4.8 - 10.8 /CUMM) 9.8 RBC (4.20 - 5.40 /CUMM) 3.14 L Hgb (12.0 - 16.0 G/DL) 9.9 L Hct (37 - 47 %) 30.1 L MCV (81.0 - 99.0 FL) 95.9 MCH (27.0 - 31.0 PG) 31.6 H MCHC (33.0 - 37.0 G/DL) 32.9 L RDW (11.5 - 14.5 %) 16.2 H Plt Count (130 - 400 /CUMM) 363 MPV (7.4 - 10.4 FL) 7.2 L Gran % (42.2 - 75.2 %) 85.0 H Lymphocytes % (20.5 - 51.1 %) 6.2 L Monocytes % (1.7 - 9.3 %) 8.5 Eosinophils % (0 - 5 %) 0.3 Basophils % (0.0 - 2.0 %) 0 Absolute Granulocytes (1.4 - 6.5 /CUMM) 8.4 H Absolute Lymphocytes (1.2 - 3.4 /CUMM) 0.6 L Absolute Monocytes (0.10 - 0.60 /CUMM) 0.8 H Absolute Eosinophils (0.0 - 0.7 /CUMM) 0 Absolute Basophils (0.0 - 0.2 /CUMM) 0 Platelet Estimate (ADEQUATE) VERIFIED BY SMEAR Polychromasia 1+ Poikilocytosis 1+ Anisocytosis 1+ [place] Cells 1+ Miscellaneous Phlebotomy Draw Site RIGHT RADIAL 02/19 02/19 02/19 0300 0220 0220 Chemistry Sodium (137 - 145 mmol/L) 136 L Potassium (3.5 - 5.1 mmol/L) 5.4 H Chloride (98 - 107 mmol/L) 104 Carbon Dioxide (22 - 30 mmol/L) 18 L Anion Gap (5 - 16) 14 BUN (7 - 17 mg/dL) 103 *H Creatinine (0.5 - 1.0 mg/dL) 7.8 *H Estimated GFR (>60 ml/min) 5 L BUN/Creatinine Ratio (7 - 25 %) 13.2 Lactic Acid (0.7 - 2.1 mmol/L) < 0.5 L Phosphorus (2.5 - 4.5 mg/dL) 10.9 H Magnesium (1.6 - 2.3 mg/dL) 3.0 H Troponin I (< 0.11 ng/ml) 0.09 Hematology CBC w Diff Cancelled MAN DIFF ORDERED WBC (4.8 - 10.8 /CUMM) Cancelled 13.3 H RBC (4.20 - 5.40 /CUMM) Cancelled 3.16 L Hgb (12.0 - 16.0 G/DL) Cancelled 9.9 L Hct (37 - 47 %) Cancelled 29.9 L MCV (81.0 - 99.0 FL) Cancelled 94.8 MCH (27.0 - 31.0 PG) Cancelled 31.2 H MCHC (33.0 - 37.0 G/DL) Cancelled 32.9 L RDW (11.5 - 14.5 %) Cancelled 15.6 H Plt Count (130 - 400 /CUMM) Cancelled 403 H MPV (7.4 - 10.4 FL) Cancelled 7.3 L Gran % (42.2 - 75.2 %) 86.3 H Lymphocytes % (20.5 - 51.1 %) 5.4 L Monocytes % (1.7 - 9.3 %) 7.4 Eosinophils % (0 - 5 %) 0.2 Basophils % (0.0 - 2.0 %) 0.7 Absolute Granulocytes (1.4 - 6.5 /CUMM) 11.5 H Absolute Lymphocytes (1.2 - 3.4 /CUMM) 0.7 L Absolute Monocytes (0.10 - 0.60 /CUMM) 1.0 H Absolute Eosinophils (0.0 - 0.7 /CUMM) 0 Absolute Basophils (0.0 - 0.2 /CUMM) 0.1 Platelet Estimate (ADEQUATE) INCREASED Hypochromic-Microcytic 1+ Anisocytosis 1+ 02/19 02/18 02/18 0015 2200 2150 Blood Gas pH (7.35 - 7.45 PH) 7.13 *L pCO2 (35 - 45 TORR) 45 pO2 (80 - 100 TORR) 93 HCO3 (21 - 28 MEQ/L) 15 L ABG O2 Sat (Measured) (>96.0 %) 95.0 L P-50 (Temp Corrected) N Carboxyhemoglobin (1.5 - 5.0 %) 0.3 L O2 Concentration % 2L O2 Delivery Method N/C Chemistry Sodium (137 - 145 mmol/L) 131 L Potassium (3.5 - 5.1 mmol/L) 6.1 *H Chloride (98 - 107 mmol/L) 94 L Carbon Dioxide (22 - 30 mmol/L) 17 L Anion Gap (5 - 16) 21 H BUN (7 - 17 mg/dL) 117 *H Creatinine (0.5 - 1.0 mg/dL) 9.7 *H Estimated GFR (>60 ml/min) 4 L Glucose (65 - 99 mg/dL) 80 Lactic Acid (0.7 - 2.1 mmol/L) Cancelled < 0.5 L Calcium (8.4 - 10.2 mg/dL) 8.4 Phosphorus (2.5 - 4.5 mg/dL) 14.0 H Magnesium (1.6 - 2.3 mg/dL) 3.4 H Total Bilirubin (0.2 - 1.3 mg/dL) 0.2 AST (14 - 36 U/L) 72 H ALT (9 - 52 U/L) 60 H Troponin I (< 0.11 ng/ml) 0.13 *H Albumin (3.5 - 5.0 g/dL) 3.8 Miscellaneous Phlebotomy Draw Site LEFT BRACHIAL 02/18 1845 Urines Urinalysis MOD H Urine Color (YEL,AMB,STR) YEL Urine Clarity (CLEAR) CLEAR Urine pH (5.0 - 8.0) 5.0 Ur Specific [place] (1.001 - 1.035) >= 1.030 Urine Protein (NEG,<30 MG/DL) TRACE H Urine Ketones (NEG) TRACE H Urine Nitrite (NEG) NEG Urine Bilirubin (NEG) NEG Urine Urobilinogen (0.1 - 1.0 EU/dl) 0.2 Ur Leukocyte Esterase (NEG) NEG Ur Microscopic SEDIMENT EXAMINED Urine RBC (0 - 5 /HPF) 1-3 Urine WBC (0 - 2 /HPF) 3-5 H Ur Epithelial Cells (NONE,FEW) FEW Urine Bacteria (NEG/NONE) FEW H Hyaline Casts (0/LPF) 5-10 H Granular Casts (NONE /LPF) RARE H Urine Mucus (FEW,NONE) FEW Urine Hemoglobin (NEG) SMALL H Urine Glucose (N MG/DL) NEG 02/18 02/18 1613 1548 Chemistry Sodium (137 - 145 mmol/L) 130 L Potassium (3.5 - 5.1 mmol/L) 5.9 H Chloride (98 - 107 mmol/L) 89 L Carbon Dioxide (22 - 30 mmol/L) 17 L Anion Gap (5 - 16) 23 H BUN (7 - 17 mg/dL) 121 *H Creatinine (0.5 - 1.0 mg/dL) 10.0 *H Estimated GFR (>60 ml/min) 4 L BUN/Creatinine Ratio (7 - 25 %) 12.0 Glucose (65 - 99 mg/dL) 95 Calcium (8.4 - 10.2 mg/dL) 9.0 Phosphorus (2.5 - 4.5 mg/dL) 14.5 H Magnesium (1.6 - 2.3 mg/dL) 3.5 H Total Bilirubin (0.2 - 1.3 mg/dL) 0.2 AST (14 - 36 U/L) 78 H ALT (9 - 52 U/L) 58 H Alkaline Phosphatase (<127 U/L) 45 Creatine Kinase (30 - 135 U/L) 2540 H Troponin I (< 0.11 ng/ml) 0.13 *H Total Protein (6.3 - 8.2 g/dL) 6.4 Albumin (3.5 - 5.0 g/dL) 3.9 Globulin (1.9 - 4.2 gm/dL) 2.5 Albumin/Globulin Ratio (1.1 - 2.2 %) 1.6 TSH &T3 &Free T4 Intrp (0.270 - 4.20 uIU/mL) 0.654 Cancelled Prolactin (3.0 - 18.6 ng/mL) 76.3 H Coagulation PT (9.4 - 12.5 SEC) 10.7 INR (0.90 - 1.19) 0.98 APTT (25 - 37 SEC) 31 Hematology CBC w Diff NO MAN DIFF REQ WBC (4.8 - 10.8 /CUMM) 11.9 H RBC (4.20 - 5.40 /CUMM) 3.35 L Hgb (12.0 - 16.0 G/DL) 10.4 L Hct (37 - 47 %) 31.3 L MCV (81.0 - 99.0 FL) 93.3 MCH (27.0 - 31.0 PG) 31.2 H MCHC (33.0 - 37.0 G/DL) 33.4 RDW (11.5 - 14.5 %) 15.3 H Plt Count (130 - 400 /CUMM) 381 MPV (7.4 - 10.4 FL) 7.4 Gran % (42.2 - 75.2 %) 90.2 H Lymphocytes % (20.5 - 51.1 %) 3.6 L Monocytes % (1.7 - 9.3 %) 4.6 Eosinophils % (0 - 5 %) 0.2 Basophils % (0.0 - 2.0 %) 1.4 Absolute Granulocytes (1.4 - 6.5 /CUMM) 10.8 H Absolute Lymphocytes (1.2 - 3.4 /CUMM) 0.4 L Absolute Monocytes (0.10 - 0.60 /CUMM) 0.5 Absolute Eosinophils (0.0 - 0.7 /CUMM) 0 Absolute Basophils (0.0 - 0.2 /CUMM) 0.2 Serology Hepatitis A IgM Ab (NONREACTIVE) NONREACTIVE Hep Bs Antigen (NONREACTIVE) NONREACTIVE Hep B Core IgM Ab Conf (NONREACTIVE) NONREACTIVE Hepatitis C Antibody (NONREACTIVE) NONREACTIVE Toxicology Serum Alcohol (<10 MG/DL) < 10.0 02/18 1546 Toxicology Urine Opiates Screen (>2000 NG/ML) > 4000.00 H Methadone Screen (>300 NG/ML) 61 Barbiturate Screen (>200 NG/ML) < 60 Ur Phencyclidine Scrn (>25 NG/ML) 8.90 Amphetamines Screen (>1000 NG/ML) < 100 U Benzodiazepines Scrn (>200 NG/ML) < 85 Urine Cocaine Screen (>300 NG/ML) < 50 Urine Cannabis Screen (>50 NG/ML) < 5.00 Urines Urine Osmolality (300 - 1000 MOSM/KG) 339 Ur Random Creatinine (mg/dL) 243.9 U Random Total Protein (0 - 12 mg/dL) 12 Ur Random Sodium (30 - 90 mmol/L) 20 L Ur Random Potassium (mmol/L) 53.2 Protein/Creatinin Ratio (< 0.2) 0.0 Fraction Sodium Excret (<1% %) < 1.0 Imaging/Other Studies: EXAM TYPE: RAD - XRY-PORTABLE CHEST XRAY EXAMINATION: XR PORTABLE CHEST CLINICAL INFORMATION: ET tube position. COMPARISON: Chest x-ray from earlier today. TECHNIQUE: Portable AP semierect view of the chest was obtained. FINDINGS: The endotracheal tube tip is now seen approximately 2.4 cm above the manuel. Enteric tube is seen projected in region of the gastric antrum/pylorus. Right jugular central venous line extends into the mid SVC with tip poorly visualized. The cardiomediastinal silhouette is normal. Low lung volumes are seen with bibasilar opacities, consistent with atelectasis. Mild central vascular congestion is seen. Evaluation of lungs suboptimal due to overexposure of the film. Bony structures grossly unremarkable. IMPRESSION: 1. Endotracheal tube tip approximately 2.4 cm above the manuel. 2. Enteric tube tip projects in region of the gastric antrum/pylorus. 3. Right jugular central venous line tip in region of the mid SVC. 4. Low lung volumes with bibasilar atelectasis and mild central vascular congestion.
[2018-02-20 16:00] VITALS: BP 110/64
[2018-02-20 23:57] VITALS: BP 114/76
[2018-02-21] VITALS: BP 114/76
[2018-02-21 04:36] LABS: ABSOLUTE BASOPHIL COUNT 0 /CUMM (0.0-0.2); ABSOLUTE EOSINOPHIL COUNT 0.2 /CUMM (0.0-0.7); ABSOLUTE GRANULOCYTE CT 2.7 /CUMM (1.4-6.5); ABSOLUTE LYMPH COUNT 1.3 /CUMM (1.2-3.4); ABSOLUTE MONOCYTE COUNT 0.5 /CUMM (0.10-0.60); BASOPHIL % 0.4 % (0.0-2.0); EOSINOPHIL % 4.4 % (0-5); HEMATOCRIT 24.6 % (37-47); MEAN CORPUSCULAR HGB 31.2 PG (27.0-31.0); MEAN CORPUSCULAR HGB CONC 33.4 G/DL (33.0-37.0); MEAN CORPUSCULAR VOLUME 93.4 FL (81.0-99.0); PLATELET COUNT 285 /CUMM (130-400); RBC DISTRIBUTION WIDTH 15.6 % (11.5-14.5); RED BLOOD CELL CT 2.64 /CUMM (4.20-5.40); WHITE BLOOD CELL COUNT 4.7 /CUMM (4.8-10.8)
[2018-02-21 08:00] VITALS: BP 126/84
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
--- NOTE | 2018-02-21 09:19 | RADIOLOGY REPORT ---
EXAMINATION: XR PORTABLE CHEST CLINICAL INFORMATION: Intubated. COMPARISON: Multiple prior chest x-rays, most recent of which is dated 02/20/2018. TECHNIQUE: Portable AP erect view of the chest was obtained. FINDINGS: Endotracheal tube tip is 1.6 cm above the manuel. Enteric tube courses into the abdomen with tip not seen. Right jugular large bore catheter extends to the mid SVC. Multiple EKG leads overlie the chest. The cardiomediastinal silhouette is enlarged, likely projectional. Low lung volumes are again noted with mild bibasilar subsegmental atelectasis again noted. No significant pleural effusion or pneumothorax. Bony structures unremarkable. IMPRESSION: 1. Endotracheal tube tip 1.6 cm above the manuel. 2. Enteric tube extends into the abdomen with tip not included. 3. Right jugular central venous line tip in region of mid SVC. 4. No change in low lung volumes and bibasilar atelectasis.
--- NOTE | 2018-02-21 11:48 | PN- Neurology ---
Subjective Subjective: Still obtunded and intubated. Stable. Review of Systems: no change. Objective Vital Signs and I&Os Vital Signs Date Time Temp Pulse Resp B/P B/P Pulse O2 O2 Flow FiO2 Mean Ox Delivery Rate 02/21 1108 25 08/ 0837 25 02/21 0800 99 Ventilator 25% 02/21 0800 97.7 87 18 126/84 99 Ventilator 25% 02/21 0554 25 02/21 0400 99 Ventilator 25% 02/21 0317 25 02/21 0049 25 08/ 0000 100 Ventilator 25% 08/ 0000 97.5 64 18 114/76 100 Ventilator 25% 08/ 2357 97.5 69 18 114/76 100 Ventilator 08/ 2232 25 08 2000 Ventilator 25% 02/20 1950 25 08/ 1655 25 08/ 1600 100 Ventilator 25% 08/ 1600 97.4 68 18 110/64 100 Ventilator 25% 08/ 1420 25 08/ 1215 30 08/ 1200 100 Ventilator 30% / 1155 98.2 89 18 122/68 100 Ventilator 30% Intake & Output 02/21 1600 /12 0800 08/12 0000 /11 1600 /11 0800 08/ 0000 Intake Total 1151 1555.2 1349 1641 Output Total 620 1150 1540 2300 Balance 531 405.2 -191 -659 Intake, IV 1151 1555.2 1349 1641 Intake, Oral 0 Number 0 Bowel Movements Output, 100 250 100 50 Gastric Drainage Output, Urine 567 691 0463 2250 Patient 179 lb 173 lb Weight Weight Bed scale Bed scale Measurement Method Physical Exam: Obtunded and intubated. 3mm small pupils equal and reactive. Doll's eye intact, Corneal's responsive bilaterally. Not posturing. Moves right > left. Current Medications: Current Medications Sig/Davon Start time Last Medication Dose Route Stop Time Status Admin Dextrose 25 GM ONCE ONE 02/21 1115 DC 02/21 IV 02/21 1116 1123 Fentanyl Citrate 1,000 MCG Q8H 02/20 2100 AC 02/21 Dextrose/Water 250 ML IV 0848 Fentanyl Citrate 1,000 MCG Q24H 02/20 0900 DC 02/20 Dextrose/Water 250 ML IV 02/20 2100 1050 Folic Acid 1 MG DAILY 02/21 1024 AC 02/21 PO 1121 Heparin Sodium 5,000 UNIT Q8 02/20 2200 AC 02/21 (Porcine) SC 0533 Lorazepam 2 MG ONE ONE 02/21 1015 DC 02/21 IV 02/21 1016 1021 Lorazepam 100 MG Q24H 02/21 1015 AC 02/21 Dextrose/Water 1,000 ML IV 1121 Lorazepam 0 .STK-MED ONE 02/21 1000 DC .ROUTE Moxifloxacin HCl 400 MG Q24H 02/20 0100 DC 02/20 N/A 1 UNIT IV 0119 Multivitamins 1 TAB DAILY 02/21 1024 AC 02/21 PO 1122 Norepinephrine 8 MG Q24H 02/19 0245 DC 02/19 Dextrose/Water 500 ML IV 0358 Pantoprazole Sodium 40 MG DAILY 02/20 0900 AC 02/21 IV 0848 Propofol 1,000 MG Q4 02/21 1000 AC 02/21 N/A 1 UNIT IV 1038 Propofol 1,000 MG Q12H 02/19 0900 DC 02/21 N/A 1 UNIT IV 0456 Sodium Chloride 1,000 ML Q6H 02/18 2145 AC 02/21 IV 0456 Thiamine HCl 100 MG DAILY 02/21 1025 AC 02/21 PO 1122 Vancomycin HCl 1,000 MG Q24H 02/20 0300 DC 02/20 Sodium Chloride 250 ML IV 0258 Results Last 24 Hours of Lab Results: Laboratory Tests 02/21 02/21 02/20 0920 0400 1745 Blood Gas pH (7.35 - 7.45 PH) 7.46 H pCO2 (35 - 45 TORR) 27 L pO2 (80 - 100 TORR) 108 H HCO3 (21 - 28 MEQ/L) 19 L ABG O2 Sat (Measured) (>96.0 %) 98.0 Carboxyhemoglobin (1.5 - 5.0 %) 0.3 L O2 Concentration % 25 Respiration Rate (BPM) 18 O2 Delivery Method VENT Vent Mode AC Expiratory Pressure (CMH2O/P) 5 Tidal Volume (CC) 550 Pressure Support (CMH2O/P) 0 Chemistry Sodium (137 - 145 mmol/L) 140 141 Potassium (3.5 - 5.1 mmol/L) 3.9 3.9 Chloride (98 - 107 mmol/L) 113 H 116 H Carbon Dioxide (22 - 30 mmol/L) 21 L 21 L Anion Gap (5 - 16) 6 4 L BUN (7 - 17 mg/dL) 26 H 32 H Creatinine (0.5 - 1.0 mg/dL) 0.7 0.8 Estimated GFR (>60 ml/min) > 60 > 60 BUN/Creatinine Ratio (7 - 25 %) 40.0 H Glucose (65 - 99 mg/dL) 82 Calcium (8.4 - 10.2 mg/dL) 7.6 L Phosphorus (2.5 - 4.5 mg/dL) 2.3 L Magnesium (1.6 - 2.3 mg/dL) 2.5 H Total Bilirubin (0.2 - 1.3 mg/dL) 0.3 AST (14 - 36 U/L) 31 ALT (9 - 52 U/L) 53 H Albumin (3.5 - 5.0 g/dL) 2.8 L Hematology CBC w Diff NO MAN DIFF REQ WBC (4.8 - 10.8 /CUMM) 4.7 L RBC (4.20 - 5.40 /CUMM) 2.64 L Hgb (12.0 - 16.0 G/DL) 8.2 L Hct (37 - 47 %) 24.6 L MCV (81.0 - 99.0 FL) 93.4 MCH (27.0 - 31.0 PG) 31.2 H MCHC (33.0 - 37.0 G/DL) 33.4 RDW (11.5 - 14.5 %) 15.6 H Plt Count (130 - 400 /CUMM) 285 MPV (7.4 - 10.4 FL) 7.0 L Gran % (42.2 - 75.2 %) 58.0 Lymphocytes % (20.5 - 51.1 %) 27.1 Monocytes % (1.7 - 9.3 %) 10.1 H Eosinophils % (0 - 5 %) 4.4 Basophils % (0.0 - 2.0 %) 0.4 Absolute Granulocytes (1.4 - 6.5 /CUMM) 2.7 Absolute Lymphocytes (1.2 - 3.4 /CUMM) 1.3 Absolute Monocytes (0.10 - 0.60 /CUMM) 0.5 Absolute Eosinophils (0.0 - 0.7 /CUMM) 0.2 Absolute Basophils (0.0 - 0.2 /CUMM) 0 Miscellaneous Phlebotomy Draw Site LEFT RADIAL Recent Imaging Studies: FINDINGS: There is no evidence of acute intracranial hemorrhage or territorial infarction. No abnormal mass effect or midline shift is seen. Yoon to white matter differentiation is well preserved. No extra-axial fluid collections are identified. The ventricles are normal in size. There is no abnormal attenuation within the brain parenchyma. The osseous structures and soft tissues are normal. The mastoid air cells and visualized portions of the paranasal sinuses are well aerated. IMPRESSION: No acute intracranial pathology. EEG -metabolic encephalopathy Assessment/Plan Assessment: 62 year old with encephalopathy most likely of the metabolic type, stable. Plan: C/w current treatment of metabolic causes.
[2018-02-21 12:00] VITALS: BP 136/82
[2018-02-21 16:00] VITALS: BP 144/82
[2018-02-21 23:00] VITALS: BP 134/84
[2018-02-22 04:44] LABS: ABSOLUTE BASOPHIL COUNT 0 /CUMM (0.0-0.2); ABSOLUTE EOSINOPHIL COUNT 0.3 /CUMM (0.0-0.7); ABSOLUTE GRANULOCYTE CT 3.7 /CUMM (1.4-6.5); ABSOLUTE LYMPH COUNT 1.4 /CUMM (1.2-3.4); ABSOLUTE MONOCYTE COUNT 0.5 /CUMM (0.10-0.60); BASOPHIL % 0.2 % (0.0-2.0); EOSINOPHIL % 5.3 % (0-5); GRANULOCYTE % 62.1 % (42.2-75.2); HEMATOCRIT 25.2 % (37-47); MEAN CORPUSCULAR HGB 30.9 PG (27.0-31.0); MEAN CORPUSCULAR HGB CONC 33.2 G/DL (33.0-37.0); MEAN CORPUSCULAR VOLUME 93.1 FL (81.0-99.0); MEAN PLATELET VOLUME 6.6 FL (7.4-10.4); PLATELET COUNT 268 /CUMM (130-400); RBC DISTRIBUTION WIDTH 14.9 % (11.5-14.5); WHITE BLOOD CELL COUNT 5.9 /CUMM (4.8-10.8)
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
--- NOTE | 2018-02-22 07:52 | PN- CRCU ---
Subjective HPI/Critical Care Issues: The patient remains intubated and on mechanical ventilation. She appears awake but is not tracking with her eyes or following commands. The patient remains on Ativan at 5 mg/h, and fentanyl at 75 mcg/h. She has been treated for multivitamin, thiamine and folate in the event of alcohol abuse. EEG showed abnormal, moderate to marked generalized slowing consistent with a diffuse metabolic encephalopathy. There were no epileptiform abnormalities seen. No weaning has occurred due to the patient's mental status. She is tolerating tube feeds. Objective Current Medications: Current Medications Sig/Davon Start time Last Medication Dose Route Stop Time Status Admin Dextrose 25 GM ONCE ONE 02/21 1115 DC 02/21 IV 02/21 1116 1123 Dextrose/Sodium 1,000 ML Q13H 02/21 1630 AC 02/21 Chloride IV 1638 Fentanyl Citrate 1,000 MCG Q5H 02/21 1300 AC 02/22 Dextrose/Water 250 ML IV 0202 Fentanyl Citrate 1,000 MCG Q8H 02/20 2100 DC 02/21 Dextrose/Water 250 ML IV 02/21 1259 0848 Folic Acid 1 MG DAILY 02/21 1024 AC 02/21 PO 1121 Heparin Sodium 5,000 UNIT Q8 02/20 2200 AC 02/22 (Porcine) SC 0606 Lorazepam 2 MG ONE ONE 02/21 1015 DC 02/21 IV 02/21 1016 1021 Lorazepam 100 MG Q24H 02/21 1015 AC 02/21 Dextrose/Water 1,000 ML IV 1121 Lorazepam 0 .STK-MED ONE 02/21 1000 DC .ROUTE Multivitamins 1 TAB DAILY 02/21 1024 AC 02/21 PO 1122 Pantoprazole Sodium 40 MG DAILY 02/20 0900 AC 02/21 IV 0848 Potassium Chloride 10 MEQ Q1H 02/22 0715 AC IV 02/22 0816 Potassium Chloride 10 MEQ ONCE ONE 02/22 0715 CAN IV 02/22 0716 Propofol 1,000 MG Q4 02/21 1000 AC 02/21 N/A 1 UNIT IV 1038 Propofol 1,000 MG Q12H 02/19 0900 DC 02/21 N/A 1 UNIT IV 0456 Sodium Chloride 1,000 ML Q6H 02/18 2145 DC 02/21 IV 0456 Thiamine HCl 500 MG Q8H 02/21 1800 AC 02/22 Sodium Chloride 250 ML IV 0315 Thiamine HCl 500 MG Q8 02/21 1746 CAN IV Thiamine HCl 100 MG DAILY 02/21 1025 AC 02/21 PO 1122 Vital Signs & I&O Last 24 Hrs of Vitals and I&O: Vital Signs Date Time Temp Pulse Resp B/P B/P Pulse O2 O2 Flow FiO2 Mean Ox Delivery Rate 02/22 0552 25 02/22 0400 98 Ventilator 25% 02/22 0323 25 02/22 0035 25 02/22 0000 100 Ventilator 25% 02/21 2300 97.4 81 18 134/84 100 Ventilator 25% 02/21 2238 25 02/21 2000 99 Ventilator 25% 02/21 1910 25 02/21 1615 25 02/21 1600 99 Ventilator 25% 02/21 1600 97.2 106 21 144/82 99 Ventilator 25% 02/21 1417 25 02/21 1200 97.5 74 18 136/82 99 Ventilator 25% 02/21 1200 99 Ventilator 25% 02/21 1108 25 02/21 0837 25 02/21 0800 99 Ventilator 25% 02/21 0800 97.7 87 18 126/84 99 Ventilator 25% Intake & Output 02/22 0800 02/22 0000 02/21 1600 Intake Total 1690 1626 1451 Output Total 580 650 600 Balance 1110 976 851 Intake, IV 1351 1372 1351 Intake, Tube 139 154 Feeding Intake, Tube 200 100 100 Irrigant Number 0 0 Bowel Movements Output, 100 Gastric Drainage Output, Urine 580 650 500 Patient 194 lb Weight Weight Bed scale Measurement Method Exam General Appearance: intubated Head: atraumatic Neck: supple Respiratory: quiet respiration, decreased breath sounds Cardiovascular: regular rate/rhythm Abdomen: normal bowel sounds, soft, non-tender Extremities: no edema Skin: intact, normal color, warm/dry Results Last 24 Hrs of Lab Results: Laboratory Tests 02/22/18 0415: Anion Gap 5, Estimated GFR > 60, Glucose 103 H, Calcium 7.4 L, Phosphorus 2.5, Magnesium 1.9, Total Bilirubin 0.3, AST 22, ALT 42, Albumin 2.5 L, CBC w Diff NO MAN DIFF REQ, RBC 2.70 L, MCV 93.1, MCH 30.9, MCHC 33.2, RDW 14.9 H, MPV 6.6 L, Gran % 62.1, Lymphocytes % 24.1, Monocytes % 8.3, Eosinophils % 5.3 H, Basophils % 0.2, Absolute Granulocytes 3.7, Absolute Lymphocytes 1.4, Absolute Monocytes 0.5, Absolute Eosinophils 0.3, Absolute Basophils 0 02/21/18 0920: pH 7.46 H, pCO2 27 L, pO2 108 H, HCO3 19 L, ABG O2 Sat (Measured) 98.0, Carboxyhemoglobin 0.3 L, O2 Concentration % 25, Respiration Rate 18, O2 Delivery Method VENT, Vent Mode AC, Expiratory Pressure 5, Tidal Volume 550, Pressure Support 0, Phlebotomy Draw Site LEFT RADIAL Impression/Plan Impression/Plan Impression/Plan: 1. Acute respiratory failure, on mechanical ventilation. 2. Metabolic encephalopathy. 3. Hypovolemic shock. 4. Acute kidney injury, secondary to rhabdo and medications. 5. Toxic metabolic encephalopathy, uremic encephalopathy. 6. Possible aspiration pneumonia/pneumonitis. 7. Chronic pain, on chronic opiate regimen. 8. Mildly positive troponin, likely demand ischemia. 9. Anemia without evidence of active bleeding. Recommendations: * Decrease respiratory rate to 12. * Daily CXRs for monitoring. * Will begin weaning when more alert. * Continue nebs/total respiratory care. * Monitor culture data and follow off antibiotics. * Continue IV fluids per nephrology. * Replete K+ to 4.0. * For removal of dialysis catheter today. * Attempt to wean sedation down for improvement in mental status. * Monitor CIWA scores. * Keep fentanyl at current dose. * Attempt to wean Ativan down for SAS score of 3. * Multivitamin, thiamine and folate ongoing. * Tube feeds to be advanced to goal. * Vent bundle, DVT/GI prophylaxis at all times.
[2018-02-22 08:00] VITALS: BP 120/82
--- NOTE | 2018-02-22 08:26 | RADIOLOGY REPORT ---
EXAMINATION: XR PORTABLE CHEST CLINICAL INFORMATION: Intubated. COMPARISON: 02/21/2018. TECHNIQUE: Portable frontal view of the chest was obtained. FINDINGS: The endotracheal tube is 2.9 cm above the manuel. The feeding tube is in the stomach. Right IJ CVC terminates at the cavoatrial junction. Low lung volumes are unchanged. Mild bibasilar atelectasis. Cardiomediastinal silhouette is stable. IMPRESSION: ET tube 2.9 cm above the manuel. Enteric tube in the stomach. Right internal jugular CVC terminates cavoatrial junction. No change in low lung volumes and mild bibasilar atelectasis.
[2018-02-22 12:00] VITALS: BP 138/76
[2018-02-22 16:00] VITALS: BP 148/84
[2018-02-22 18:00] VITALS: BP 162/93
[2018-02-22 20:00] VITALS: BP 120/82
[2018-02-22 22:00] VITALS: BP 140/68
[2018-02-23 04:00] VITALS: BP 129/79
[2018-02-23 04:46] LABS: ABSOLUTE BASOPHIL COUNT 0 /CUMM (0.0-0.2); ABSOLUTE EOSINOPHIL COUNT 0.3 /CUMM (0.0-0.7); ABSOLUTE GRANULOCYTE CT 4.4 /CUMM (1.4-6.5); ABSOLUTE LYMPH COUNT 1.5 /CUMM (1.2-3.4); ABSOLUTE MONOCYTE COUNT 0.5 /CUMM (0.10-0.60); BASOPHIL % 0.5 % (0.0-2.0); EOSINOPHIL % 3.9 % (0-5); GRANULOCYTE % 65.3 % (42.2-75.2); HEMATOCRIT 25.3 % (37-47); MEAN CORPUSCULAR HGB 31.2 PG (27.0-31.0); MEAN CORPUSCULAR HGB CONC 33.5 G/DL (33.0-37.0); MEAN CORPUSCULAR VOLUME 93.1 FL (81.0-99.0); MEAN PLATELET VOLUME 6.9 FL (7.4-10.4); PLATELET COUNT 238 /CUMM (130-400); RBC DISTRIBUTION WIDTH 15.1 % (11.5-14.5); RED BLOOD CELL CT 2.72 /CUMM (4.20-5.40); WHITE BLOOD CELL COUNT 6.7 /CUMM (4.8-10.8)
[2018-02-23 06:00] VITALS: BP 160/76
--- NOTE | 2018-02-23 06:19 | RADIOLOGY REPORT ---
EXAMINATION: XR PORTABLE CHEST CLINICAL INFORMATION: Endotracheal tube positioning COMPARISON: 02/22/2018 TECHNIQUE: Portable frontal view of the chest was obtained. FINDINGS: Cardiac leads overlie the chest. One lead partially obscures position of the endotracheal tube. The endotracheal tube likely terminates approximately 3 cm above the manuel. This is similar to previous. Low lung volumes. No dense consolidation, edema, or effusion. No pneumothorax. The cardiomediastinal silhouette is unchanged. IMPRESSION: Endotracheal tube terminating approximately 3 cm above the manuel.
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
[2018-02-23 08:00] VITALS: BP 144/98
--- NOTE | 2018-02-23 08:27 | PN- CRCU ---
Subjective HPI/Critical Care Issues: The patient remains on Ativan at 3.5 mg/h and a fentanyl drip at 75 mcg/h, intubated. She is attempting to sit out of bed intermittently. She has recurrent dorsiflexion of both feet. There is no seizure activity reported. She opens her eyes but is not tracking. The patient remained hemodynamically stable. She is afebrile. Her heart rate is intermittently elevated in the low 100s. She continues on assist [id number]/550/25%/5, with saturations in the mid 90s. The patient is not tolerating weaning trials. She has excellent urine output. She is tolerating tube feeds well. She is not able to offer complaints. Objective Current Medications: Current Medications Sig/Davon Start time Last Medication Dose Route Stop Time Status Admin Dextrose/Sodium 1,000 ML Q13H 02/21 1630 AC 02/22 Chloride IV 0819 Docusate Sodium 100 MG DAILY NEEDED PRN 02/22 1115 AC PO Fentanyl Citrate 1,000 MCG Q13H 02/22 2100 AC 02/22 Dextrose/Water 250 ML IV 2146 Fentanyl Citrate 1,000 MCG Q5H 02/21 1300 DC 02/22 Dextrose/Water 250 ML IV 02/22 2059 0743 Folic Acid 1 MG DAILY 02/21 1024 AC 02/22 PO 0819 Heparin Sodium 5,000 UNIT Q8 02/20 2200 AC 02/23 (Porcine) SC 0619 Lorazepam 100 MG Q28H 02/23 0745 AC Dextrose/Water 1,000 ML IV Lorazepam 100 MG Q25H 02/22 0800 DC Dextrose/Water 1,000 ML IV Lorazepam 100 MG Q24H 02/21 1015 DC 02/22 Dextrose/Water 1,000 ML IV 0742 Magnesium Oxide 400 MG ONE ONE 02/23 0730 CAN PO 02/23 0731 Magnesium Sulfate 1 GM ONCE ONE 02/23 0730 AC 02/23 Dextrose/Water 100 ML IV 02/23 1129 0728 Multivitamins 1 TAB DAILY 02/21 1024 AC 02/22 PO 0819 Pantoprazole Sodium 40 MG DAILY 02/20 0900 AC 02/22 IV 0819 Polyethylene Glycol 17 GM DAILY 02/22 1130 AC 02/22 PO 1250 Potassium Chloride 20 MEQ ONCE ONE 02/22 0900 DC 02/22 PO 02/22 0901 1007 Propofol 1,000 MG Q4 02/21 1000 DC 02/21 N/A 1 UNIT IV 1038 Senna 187 MG AT BEDTIME PRN 02/22 1115 AC 02/22 PO 1250 Thiamine HCl 500 MG Q8H 02/21 1800 AC 02/23 Sodium Chloride 250 ML IV 0324 Thiamine HCl 100 MG DAILY 02/21 1025 AC 02/22 PO 0819 Vital Signs & I&O Last 24 Hrs of Vitals and I&O: Vital Signs Date Time Temp Pulse Resp B/P B/P Pulse O2 O2 Flow FiO2 Mean Ox Delivery Rate 02/23 0625 25 02/23 0600 106 24 160/76 02/23 0400 97.7 101 26 129/79 02/23 0400 97 Ventilator 25% 02/23 0258 25 02/23 0059 25 02/22 2229 25 02/22 2200 98 20 140/68 02/22 2000 97.7 96 15 120/82 02/23 2000 99 Ventilator 25% 02/22 1915 25 02/22 1800 99.0 110 20 162/93 02/22 1610 25 02/22 1600 99.0 92 14 148/84 02/22 1600 99 Ventilator 25% 02/22 1600 99.0 92 14 148/84 99 Ventilator 35% 02/22 1435 25 02/22 1200 98.2 92 20 138/76 02/22 1200 99 Ventilator 25% 02/22 1200 98.2 106 20 138/76 99 Ventilator 25% 02/22 1150 25 02/22 0840 25 Intake & Output 02/23 1600 14 0800 02/23 0000 Intake Total 1681 1620.4 Output Total 1475 1190 Balance 206 430.4 Intake, IV 772 1080.4 Intake, Other 200 Intake, Tube 709 340 Feeding Intake, Tube 200 Irrigant Number 1 Bowel Movements Output, Urine 1475 1190 Patient 185 lb Weight Weight Bed scale Measurement Method Exam General Appearance: intubated Head: atraumatic, pupils are equal and reactive bilaterally Neck: supple Respiratory: quiet respiration, decreased breath sounds Cardiovascular: regular rate/rhythm Abdomen: normal bowel sounds, soft, non-tender Extremities: no edema Skin: intact, normal color, warm/dry Results Last 24 Hrs of Lab Results: Laboratory Tests 02/23/18 0415: Anion Gap 5, Estimated GFR > 60, Glucose 97, Calcium 7.6 L, Phosphorus 2.9, Magnesium 1.6, Total Bilirubin 0.2, AST 21, ALT 36, Albumin 2.4 L, CBC w Diff NO MAN DIFF REQ, RBC 2.72 L, MCV 93.1, MCH 31.2 H, MCHC 33.5, RDW 15.1 H, MPV 6.9 L, Gran % 65.3, Lymphocytes % 22.4, Monocytes % 7.9, Eosinophils % 3.9, Basophils % 0.5, Absolute Granulocytes 4.4, Absolute Lymphocytes 1.5, Absolute Monocytes 0.5, Absolute Eosinophils 0.3, Absolute Basophils 0 Impression/Plan Impression/Plan Impression/Plan: 1. Acute respiratory failure, on mechanical ventilation. 2. Toxic/metabolic encephalopathy. 3. Hypovolemic shock -resolved. 4. Acute kidney injury, secondary to rhabdo and medications. 5. Anemia without evidence of active bleeding. 6. Possible aspiration pneumonia/pneumonitis. 7. Chronic pain, on chronic opiate regimen. 8. Mildly positive troponin, likely demand ischemia. Recommendations: * Establish peripheral access. * Discontinue right groin triple-lumen catheter today. * Follow-up chest x-ray from this morning. * Continue daily chest x-rays for monitoring. * Daily weaning trials to continue. * Nebs/total respiratory care. * Follow off antibiotics. * Continue IV fluids per nephrology. * Monitor electrolytes and replace as necessary. * Wean Ativan down to off. * Continue fentanyl at 75 mcg/h. Will wean once the fentanyl is off and there are no signs of withdrawal. * May consider Precedex if the patient is agitated. We cannot however uses for prolonged periods of time. * Continue multivitamin, thiamine and folate. * Continue tube feeds at goal. * Vent bundle, DVT/GI prophylaxis at all times. * The patient remains critically ill with the potential of poor prognosis. Her mental status will continually need to be monitored. Will continue to follow neurology recommendations. * Appreciate all consultants input.
--- NOTE | 2018-02-23 12:46 | RADIOLOGY REPORT ---
EXAMINATION: XR PORTABLE CHEST CLINICAL INFORMATION: Confirm position of PICC line. COMPARISON: Chest x-ray dated 02/23/2018. TECHNIQUE: Portable AP semierect view of the chest was obtained. FINDINGS: Endotracheal tube is 4 cm above the manuel. Enteric tube courses into the abdomen with tip not included. A right subclavian PICC line is in place with tip in the distal SVC. Multiple EKG leads overlie the chest. The cardiomediastinal silhouette is borderline normal in size. Low lung volumes are seen with central vascular congestion and some reticular opacities in the medial right lung base and in the retrocardiac left lung base, consistent with atelectasis. No pneumothorax is noted. Bony structures are unremarkable. IMPRESSION: 1. PICC line tip in distal SVC. 2. Endotracheal tube is 4 cm above the manuel. 3. Enteric tube courses into the abdomen with tip not included. 4. Low lung volumes with central vascular congestion and bibasilar opacities, consistent with atelectasis.
[2018-02-23 16:00] VITALS: BP 148/78
[2018-02-23 20:00] VITALS: BP 169/78
[2018-02-23 22:00] VITALS: BP 172/70
[2018-02-24] VITALS (8 sets, daily range): BP systolic 130–169; BP diastolic 74–100
[2018-02-24 04:55] LABS: ABSOLUTE BASOPHIL COUNT 0 /CUMM (0.0-0.2); ABSOLUTE EOSINOPHIL COUNT 0.3 /CUMM (0.0-0.7); ABSOLUTE GRANULOCYTE CT 5.6 /CUMM (1.4-6.5); ABSOLUTE LYMPH COUNT 1.2 /CUMM (1.2-3.4); ABSOLUTE MONOCYTE COUNT 0.7 /CUMM (0.10-0.60); BASOPHIL % 0.2 % (0.0-2.0); EOSINOPHIL % 3.3 % (0-5); GRANULOCYTE % 72.1 % (42.2-75.2); HEMATOCRIT 24.1 % (37-47); MEAN CORPUSCULAR HGB 31.1 PG (27.0-31.0); MEAN CORPUSCULAR HGB CONC 33.2 G/DL (33.0-37.0); MEAN CORPUSCULAR VOLUME 93.6 FL (81.0-99.0); MEAN PLATELET VOLUME 6.6 FL (7.4-10.4); PLATELET COUNT 210 /CUMM (130-400); RBC DISTRIBUTION WIDTH 14.9 % (11.5-14.5); RED BLOOD CELL CT 2.57 /CUMM (4.20-5.40); WHITE BLOOD CELL COUNT 7.8 /CUMM (4.8-10.8)
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
--- NOTE | 2018-02-24 08:48 | PN- CRCU ---
Subjective HPI/Critical Care Issues: The patient remains on mechanical ventilation, and on a fentanyl drip at 75 mcg/ h. The patient is now off Ativan. She remains awake but is not following commands or tracking with her eyes. She is tolerating tube feeds well, without aspiration events. She continues to have good urine output. The patient was weaned yesterday, noting her respiratory rate was elevated in the morning. In the evening however, the patient weaned on a pressure support of 8 for approximately 1 hour. The patient remains afebrile and hemodynamically stable. Objective Current Medications: Current Medications Sig/Davon Start time Last Medication Dose Route Stop Time Status Admin Dextrose/Sodium 1,000 ML Q13H 02/21 1630 DC 02/23 Chloride IV 0837 Docusate Sodium 100 MG DAILY NEEDED PRN 02/22 1115 AC PO Fentanyl Citrate 1,000 MCG Q14H 02/24 0600 AC 02/24 Dextrose/Water 250 ML IV 0628 Fentanyl Citrate 1,000 MCG Q13H 02/22 2100 DC 02/23 Dextrose/Water 250 ML IV 02/24 0600 1809 Folic Acid 1 MG DAILY 02/21 1024 AC 02/24 PO 0826 Heparin Sodium 5,000 UNIT Q8 02/20 2200 AC 02/24 (Porcine) SC 0529 Lorazepam 100 MG Q28H 02/23 0745 AC 02/23 Dextrose/Water 1,000 ML IV 0839 Magnesium Sulfate 1 GM ONCE ONE 02/24 0730 AC 02/24 Dextrose/Water 100 ML IV 02/24 1129 0826 Magnesium Sulfate 1 GM Q2H 02/23 1215 CAN Dextrose/Water 100 ML IV 02/23 1614 Magnesium Sulfate 1 GM ONCE ONE 02/23 1215 DC 02/23 Dextrose/Water 100 ML IV 02/23 1614 1216 Magnesium Sulfate 1 GM ONCE ONE 02/23 0730 DC 02/23 Dextrose/Water 100 ML IV 02/23 1129 0728 Metoprolol Tartrate 0 .STK-MED ONE 02/234 DC IV Metoprolol Tartrate 5 MG ONCE ONE 02/23 2200 DC 02/23 IV 02/23 2201 2208 Multivitamins 1 TAB DAILY 02/21 1024 AC 02/24 PO 0826 Pantoprazole Sodium 40 MG DAILY 02/20 0900 AC 02/24 IV 0826 Polyethylene Glycol 17 GM DAILY 02/22 1130 AC 02/22 PO 1250 Senna 187 MG AT BEDTIME PRN 02/22 1115 AC 02/22 PO 1250 Thiamine HCl 500 MG Q8H 02/21 1800 AC 02/24 Sodium Chloride 250 ML IV 0229 Thiamine HCl 100 MG DAILY 02/21 1025 AC 02/24 PO 0826 Vital Signs & I&O Last 24 Hrs of Vitals and I&O: Vital Signs Date Time Temp Pulse Resp B/P B/P Pulse O2 O2 Flow FiO2 Mean Ox Delivery Rate 02/24 0800 97.9 92 16 134/74 97 Ventilator 25% 02/24 0541 25 02/24 0400 91 16 130/80 02/24 0400 97 Ventilator 25% 02/24 0235 25 02/24 0200 108 20 159/80 / 0040 25 / 0000 97.2 96 19 164/80 08/ 0000 97.2 96 19 164/80 96 Ventilator 25% 02/24 0000 96 Ventilator 25% 02/23 2211 25 02/23 2208 104 162/76 02/23 2200 98.2 106 20 172/70 /14 2001 25 02/23 2000 98.6 104 20 169/78 08/14 2000 97 Ventilator 25% 02/23 1613 25 14 1600 97 Ventilator 25% /14 1600 97.5 91 14 148/78 96 Ventilator 25% 14 1351 25 /14 1200 96 Ventilator 25% 14 1105 25 Intake & Output 02/24 1600 08/15 0800 08/15 0000 Intake Total 1135 899.6 Output Total 1525 1850 Balance -390 -950.4 Intake, IV 465 144.6 Intake, Tube 470 455 Feeding Intake, Tube 200 300 Irrigant Number 1 3 Bowel Movements Output, Urine 1525 1850 Patient 185 lb Weight Exam General Appearance: intubated, awake, eyes open but not following commands, no distress Head: atraumatic, pupils are equal and reactive bilaterally Neck: supple Respiratory: quiet respiration, decreased breath sounds Cardiovascular: regular rate/rhythm Abdomen: normal bowel sounds, soft, non-tender Extremities: no edema Skin: intact, normal color, warm/dry Results Last 24 Hrs of Lab Results: Laboratory Tests 02/24/18 0430: Anion Gap 4 L, Estimated GFR > 60, Glucose 99, Calcium 7.7 L, Phosphorus 3.6, Magnesium 1.7, Total Bilirubin 0.2, AST 21, ALT 37, Albumin 2.4 L, CBC w Diff NO MAN DIFF REQ, RBC 2.57 L, MCV 93.6, MCH 31.1 H, MCHC 33.2, RDW 14.9 H, MPV 6.6 L, Gran % 72.1, Lymphocytes % 15.6 L, Monocytes % 8.8, Eosinophils % 3.3, Basophils % 0.2, Absolute Granulocytes 5.6, Absolute Lymphocytes 1.2, Absolute Monocytes 0.7 H, Absolute Eosinophils 0.3, Absolute Basophils 0 02/23/181: Anion Gap 6, Estimated GFR > 60, BUN/Creatinine Ratio 16.0 Impression/Plan Impression/Plan Impression/Plan: 1. Acute respiratory failure, on mechanical ventilation. The patient is doing better with weaning. 2. Toxic/metabolic/uremic encephalopathy. This remains most concerning is the patient's mental status fails to improve significantly. We are attempting to continue to decrease her sedation, and monitoring of her mental status. 3. Hypovolemic shock -resolved. 4. Acute kidney injury, secondary to rhabdo and medications. 5. Anemia without evidence of active bleeding. Likely dilutional and from phlebotomy. 6. Possible aspiration pneumonia/pneumonitis. 7. Chronic pain, on chronic opiate regimen. 8. Mildly positive troponin, likely demand ischemia. Recommendations: * Check a CBC at 4 PM. * Monitor for bleeding, guaiac all stools. * Follow-up chest x-ray results from this morning. * Continue daily chest x-rays for monitoring. * Daily weaning trials to continue. * Nebs/total respiratory care. * Follow off antibiotics. * Continue IV fluids per nephrology. * Monitor electrolytes and replace as necessary. * Decrease fentanyl to 60 mcg/h. We will continue to wean fentanyl down to off slowly to avoid withdrawal symptoms. * Start oxycodone 5 mg through NG tube 3 times daily. * May consider Precedex if the patient is agitated. * Continue multivitamin, thiamine and folate. * Continue tube feeds at goal. * Vent bundle, DVT/GI prophylaxis at all times. * The patient remains critically ill with the potential of poor prognosis. Her mental status will continually need to be monitored. Will continue to follow neurology recommendations -please ensure they continue to follow the patient's progress and we will take recommendations offered.
--- NOTE | 2018-02-24 10:11 | RADIOLOGY REPORT ---
EXAMINATION: XR PORTABLE CHEST CLINICAL INFORMATION: ET tube position and pulmonary congestion. COMPARISON: Several prior chest x-rays, most recent of which is dated 02/23/2018. TECHNIQUE: Portable AP semierect view of the chest was obtained. FINDINGS: Multiple EKG leads overlie the chest. Endotracheal tube is in place with tip approximately 2 cm above the manuel. Enteric tube is seen coursing into the stomach with tip not fully included. Right subclavian PICC line tip extends into the distal SVC. The cardiomediastinal silhouette is within normal limits in size. The cardiomediastinal silhouette is within normal limits in size. Lungs bilaterally are symmetrically mildly hypoinflated. There is patchy parenchymal opacity again seen in the right perihilar region extending into the medial right lung base, unchanged. Mild linear atelectatic change in the left lung base is seen, also unchanged. Remainder of the lungs is relatively clear. No effusion or pneumothorax is seen. Bony structures are unremarkable. IMPRESSION: 1. Endotracheal tube position is 2 cm above the manuel. 2. Enteric tube courses into the stomach with tip not fully included. 3. Right subclavian PICC line tip in the distal SVC. 4. Bibasilar linear opacities, unchanged. Findings are most likely related to atelectasis. Subtle pneumonia in the right perihilar and right medial lung base cannot be entirely excluded. Close clinical correlation is requested.
[2018-02-24 16:21] LABS: ABSOLUTE BASOPHIL COUNT 0 /CUMM (0.0-0.2); ABSOLUTE EOSINOPHIL COUNT 0.3 /CUMM (0.0-0.7); ABSOLUTE GRANULOCYTE CT 5.2 /CUMM (1.4-6.5); ABSOLUTE LYMPH COUNT 1.3 /CUMM (1.2-3.4); ABSOLUTE MONOCYTE COUNT 0.5 /CUMM (0.10-0.60); BASOPHIL % 0.3 % (0.0-2.0); EOSINOPHIL % 3.8 % (0-5); GRANULOCYTE % 70.7 % (42.2-75.2); HEMATOCRIT 25.2 % (37-47); MEAN CORPUSCULAR HGB 30.7 PG (27.0-31.0); MEAN CORPUSCULAR HGB CONC 32.9 G/DL (33.0-37.0); MEAN CORPUSCULAR VOLUME 93.4 FL (81.0-99.0); PLATELET COUNT 224 /CUMM (130-400); WHITE BLOOD CELL COUNT 7.4 /CUMM (4.8-10.8)
--- NOTE | 2018-02-24 17:34 | CT SCAN REPORT ---
EXAMINATION: CT HEAD WITHOUT CONTRAST CLINICAL INFORMATION: Toxic metabolic encephalopathy. Altered mental status. Presumptive diagnosis of hemorrhagic/ischemic stroke, anoxic brain injury. COMPARISON: CT scan of the head dated 02/18/2018 and 02/27/2016. TECHNIQUE: Contiguous axial imaging was performed from the skull base to vertex without intravenous administration of contrast. DLP: 929.21 mGy-cm FINDINGS: Evaluation is significantly limited by motion artifact, which persists despite performing repeat imaging. There is no evidence of acute intracranial hemorrhage or territorial infarction. No abnormal mass effect or midline shift is seen. Yoon to white matter differentiation is well preserved. No extra-axial fluid collections are identified. The ventricles are normal in size. There is no abnormal attenuation within the brain parenchyma. The osseous structures and soft tissues are normal. Air-fluid levels are seen within the sphenoid sinuses bilaterally. The mastoid air cells and visualized portions of the remaining paranasal sinuses are well aerated. IMPRESSION: Extremely limited study due to motion. No definite acute intracranial pathology or interval change from prior exam is seen.
[2018-02-25] VITALS (12 sets, daily range): BP systolic 74–184; BP diastolic 39–101
--- NOTE | 2018-02-25 05:04 | RADIOLOGY REPORT ---
EXAMINATION: XR PORTABLE CHEST CLINICAL INFORMATION: Increased work of breathing acutely COMPARISON: 02/24/2018 TECHNIQUE: Portable frontal view of the chest was obtained. FINDINGS: The lung apices are not included in the oedup-mg-bpcc of this study. Endotracheal tube is no longer seen. Right-sided PICC line terminates near the cavoatrial junction. Enteric tube extends into the stomach. The lungs are well expanded. Patchy opacity in the right perihilar region again noted. No pleural effusion. No large pneumothorax. The cardiomediastinal silhouette is unchanged. IMPRESSION: Persistent right perihilar hazy opacity. This is similar to prior. No edema or pneumothorax.
[2018-02-25 06:44] LABS: ABSOLUTE BASOPHIL COUNT 0.1 /CUMM (0.0-0.2); ABSOLUTE EOSINOPHIL COUNT 0.1 /CUMM (0.0-0.7); ABSOLUTE GRANULOCYTE CT 10.8 /CUMM (1.4-6.5); ABSOLUTE LYMPH COUNT 0.6 /CUMM (1.2-3.4); ABSOLUTE MONOCYTE COUNT 0.8 /CUMM (0.10-0.60); BASOPHIL % 0.9 % (0.0-2.0); EOSINOPHIL % 1.2 % (0-5); HEMATOCRIT 27.2 % (37-47); MEAN CORPUSCULAR HGB CONC 33.6 G/DL (33.0-37.0); MEAN CORPUSCULAR VOLUME 92.5 FL (81.0-99.0); MEAN PLATELET VOLUME 7.7 FL (7.4-10.4); PLATELET COUNT 212 /CUMM (130-400); RBC DISTRIBUTION WIDTH 15.1 % (11.5-14.5); RED BLOOD CELL CT 2.94 /CUMM (4.20-5.40); WHITE BLOOD CELL COUNT 12.5 /CUMM (4.8-10.8)
[2018-02-25 07:00] LABS: GRANULOCYTE % 86.6 % (42.2-75.2)
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
--- NOTE | 2018-02-25 07:44 | PN- CRCU ---
Subjective HPI/Critical Care Issues: Overnight events noted. I had reexamined and reevaluated the patient last evening, and found her to be much more responsive. She did however have difficulty with weaning. As per staff, she was wiggling her toes on command earlier in the evening. Overnight however the patient had progressive agitation and required increasing amounts of sedation. Precedex was restarted. The patient was also noted to be newly febrile with a temperature up to 101.2. She was pancultured and empirically started on vancomycin and ceftazidime. Patient also had an episode where she was difficult to ventilate and there is increased resistance. She was disconnected from the ventilator and underwent nidhi bag ventilation. She was tachycardic into the 130s. She was also tachypneic. Her oxygen requirement has increased to 50%. Vital signs improved following the addition of Ativan and Precedex. The patient is now sedated, and remains intubated. Chest x-ray shows a persistent right perihilar hazy opacity, no change compared to previous. The patient's white blood cell count is elevated to 12,000. She is currently afebrile. Objective Current Medications: Current Medications Sig/Davon Start time Last Medication Dose Route Stop Time Status Admin Alteplase, 1 MG ONCE ONE 02/24 1830 DC 02/24 Recombinant IPL 02/24 1831 2106 Ceftazidime 1,000 MG ONCE ONE 02/25 0400 DC 02/25 IV 02/25 0401 0517 Dexmedetomidine HCl 400 MCG Q24H 02/24 2359 AC 02/25 Sodium Chloride 96 ML IV 0102 Docusate Sodium 100 MG DAILY NEEDED PRN 02/22 1115 AC PO Fentanyl Citrate 1,000 MCG Q5H 02/25 0600 AC 02/25 Dextrose/Water 250 ML IV 0637 Fentanyl Citrate 100 MCG ONCE ONE 02/25 0530 DC 02/25 IV 02/25 0531 0430 Fentanyl Citrate 0 .STK-MED ONE 02/25 0413 DC .ROUTE Fentanyl Citrate 100 MCG ONCE ONE 02/25 0400 DC 02/25 IV 02/25 0401 0400 Fentanyl Citrate 1,000 MCG Q18H 02/24 1830 DC 02/24 Dextrose/Water 250 ML IV 1817 Fentanyl Citrate 1,000 MCG Q16H 02/24 1215 DC Dextrose/Water 250 ML IV 02/24 1830 Fentanyl Citrate 1,000 MCG Q14H 02/24 0600 DC 02/24 Dextrose/Water 250 ML IV 0628 Folic Acid 1 MG DAILY 02/21 1024 AC 02/24 PO 0826 Heparin Sodium 5,000 UNIT Q8 02/20 2200 AC 02/25 (Porcine) SC 0637 Labetalol HCl 10 MG ONCE ONE 02/25 0230 DC 02/25 IV 02/25 0231 0232 Labetalol HCl 0 .STK-MED ONE 02/25 0230 DC IV Lorazepam 2 MG ONCE ONE 02/25 0530 DC 02/25 IV 02/25 0531 0430 Lorazepam 0 .STK-MED ONE 02/25 0418 DC .ROUTE Lorazepam 100 MG Q28H 02/23 0745 DC 02/23 Dextrose/Water 1,000 ML IV 0839 Magnesium Sulfate 1 GM Q2H 02/25 0730 AC Dextrose/Water 100 ML IV 02/25 1129 Magnesium Sulfate 1 GM ONCE ONE 02/24 0730 DC 02/24 Dextrose/Water 100 ML IV 02/24 1129 0826 Multivitamins 1 TAB DAILY 02/21 1024 AC 02/24 PO 0826 Non-Formulary 0 SEE ADMIN CRITERIA 02/24 2245 DC Medication ANY Oxycodone HCl 5 MG TID 02/24 1006 AC 02/24 PO 2109 Pantoprazole Sodium 40 MG DAILY 02/20 0900 AC 02/24 IV 0826 Polyethylene Glycol 17 GM DAILY 02/22 1130 AC 02/22 PO 1250 Senna 187 MG AT BEDTIME PRN 02/22 1115 AC 02/22 PO 1250 Thiamine HCl 500 MG Q8H 02/21 1800 AC 02/25 Sodium Chloride 250 ML IV 0210 Thiamine HCl 100 MG DAILY 02/21 1025 AC 02/24 PO 0826 Vancomycin HCl 1,500 MG Q24H 02/25 06 DC Sodium Chloride 250 ML IV Vancomycin HCl 1,500 MG Q24H 02/25 0600 DC 02/25 Sodium Chloride 250 ML IV 02/25 0729 0637 Vancomycin HCl 1,500 MG ONCE ONE 02/25 0400 CAN IV 02/25 0401 Vital Signs & I&O Last 24 Hrs of Vitals and I&O: Vital Signs Date Time Temp Pulse Resp B/P B/P Pulse O2 O2 Flow FiO2 Mean Ox Delivery Rate 02/25 0603 50 02/25 0430 50 02/25 0238 25 02/25 0232 108 15 184/101 02/25 0052 25 02/25 0000 98.4 111 20 164/100 08/ 0000 97 Ventilator 25% 02/24 2300 98.4 111 20 164/100 97 Ventilator 25% 02/24 2206 25 02/24 2200 113 22 169/81 02/25 2000 99.1 106 14 148/90 02/25 2000 99 Ventilator 25% 02/24 1921 25 02/24 1630 25 02/24 1600 98.8 98 18 140/80 96 Ventilator 25% 02/24 1600 97 Ventilator 25% 02/24 1355 25 02/24 1200 96 Ventilator 25% 02/24 1155 25 02/24 0846 25 02/24 0800 97.9 92 16 134/74 97 Ventilator 25% 02/24 0800 97 Ventilator 25% Intake & Output 02/25 0800 02/25 0000 02/24 1600 Intake Total 1043 1243 Output Total 2250 1300 Balance -1207 -57 Intake, IV 372 493 Intake, Oral 0 Intake, Other 90 Intake, Tube 471 460 Feeding Intake, Tube 200 200 Irrigant Number 1 1 Bowel Movements Output, Urine 2250 1300 Exam General Appearance: intubated, awake, eyes open, mild distress Head: atraumatic, pupils are equal and reactive bilaterally Neck: supple Respiratory: quiet respiration, decreased breath sounds Cardiovascular: regular rate/rhythm Abdomen: normal bowel sounds, soft, non-tender Extremities: no edema Skin: intact, normal color, warm/dry Results Last 24 Hrs of Lab Results: Laboratory Tests 02/25/18 0614: Lactic Acid 1.6, Troponin I 0.28 *H, [id number] Pept 3320 H 02/25/18 0500: pH 7.46 H, pCO2 30 L, pO2 83, HCO3 20 L, ABG O2 Sat (Measured) 96.0, P-50 ( Temp Corrected) N, Carboxyhemoglobin 0.3 L, O2 Concentration % .50, Respiration Rate 12, O2 Delivery Method VENT, Vent Mode A/C, Expiratory Pressure 5, Tidal Volume 550, Anion Gap 8, Estimated GFR > 60, Glucose 150 H, Calcium 8.2 L, Phosphorus 5.1 H, Magnesium 1.5 L, Total Bilirubin 0.4, AST 34, ALT 43, Albumin 2.9 L, CBC w Diff NO MAN DIFF REQ, RBC 2.94 L, MCV 92.5, MCH 31.0, MCHC 33.6, RDW 15.1 H, MPV 7.7, Gran % 86.6 H, Lymphocytes % 5.2 L, Monocytes % 6.1, Eosinophils % 1.2, Basophils % 0.9, Absolute Granulocytes 10.8 H, Absolute Lymphocytes 0.6 L, Absolute Monocytes 0.8 H, Absolute Eosinophils 0.1 , Absolute Basophils 0.1, Phlebotomy Draw Site LEFT BRACHIAL 02/25/18 0458: Urine Color YEL, Urine Clarity HAZY H, Urine pH 6.0, Ur Specific [place] >= 1.030, Urine Protein 100 H, Urine Ketones NEG, Urine Nitrite NEG, Urine Bilirubin NEG, Urine Urobilinogen 0.2, Ur Leukocyte Esterase TRACE H, Ur Microscopic SEDIMENT EXAMINED, Urine RBC >75 H, Urine WBC 5-10 H, Ur Epithelial Cells FEW, Urine Bacteria MOD H, Urine Hemoglobin LARGE H, Urine Glucose 250 H 02/24/18 1530: CBC w Diff NO MAN DIFF REQ, RBC 2.70 L, MCV 93.4, MCH 30.7, MCHC 32.9 L, RDW 15.0 H, MPV 7.0 L, Gran % 70.7, Lymphocytes % 17.8 L, Monocytes % 7.4, Eosinophils % 3.8, Basophils % 0.3, Absolute Granulocytes 5.2, Absolute Lymphocytes 1.3, Absolute Monocytes 0.5, Absolute Eosinophils 0.3, Absolute Basophils 0 Diagnostic Data CXR Findings: Persistent right perihilar hazy opacity. This is similar to prior. No edema or pneumothorax. Impression/Plan Impression/Plan Impression/Plan: 1. Acute respiratory failure, on mechanical ventilation. The patient had an episode of oxygen desaturation. Her chest x-ray has not significantly changed. Pulmonary embolism remains within the differential diagnosis and has to be excluded. She did have a fever, has been pancultured and started empirically on vancomycin and ceftazidime. 2. Toxic/metabolic/uremic encephalopathy. 3. Hypovolemic shock -resolved. 4. Acute kidney injury, secondary to rhabdo and medications, resolved. 5. Anemia without evidence of active bleeding - stable. 6. Possible aspiration pneumonia/pneumonitis. 7. Chronic pain, on chronic opiate regimen. 8. Positive troponin, likely demand ischemia, versus VTE. Recommendations: * CTA of the chest if ok with renal. * Will check a CT of the abdomen and pelvis as well. * Follow up cultures. * Continue vanco and ceftaz. * ID consult. * Continue Precedex and Fentanyl for SAS of 3-4. * Monitor for signs for infection. * Cardiology called for elevated troponins. * Will hold off on weaning trials today. * Continue nebs/total respiratory care. * Replete electrolytes as necessary. * Repeat CBC and ICU bundle later this afternoon. * Follow neurology recommendations, appreciate input. * Tube feeds on hold due to possible aspiration. * Continue multivitamin, thiamine and folate. * Vent bundle: DVT and GI prophylaxis at all times. * Continue all supportive care.
--- NOTE | 2018-02-25 10:17 | PN- Neurology ---
Subjective Subjective: 62 year old who presented with low blood pressures, severe TR, and rapidly had a change in mental status. [place] to have had hypovolumic shock that shut down the kidneys versus septic shock. EEG suggestive a metabolic form of encephalopathy. Opiates were around 4000. In the hospital her mental status has been fluctuating. She does open her eyes and at times follow commands but it is been difficult to extubate her. Continues to have low grade fever and SOB. Team suspects aspiration pneumonia vs PE. Review of Systems: as per hpi Objective Vital Signs and I&Os Vital Signs Date Time Temp Pulse Resp B/P B/P Pulse O2 O2 Flow FiO2 Mean Ox Delivery Rate 02/25 0755 50 08/16 0603 50 /16 0600 103 20 127/61 /16 0430 50 /16 0400 101.2 110 33 149/83 08/16 0400 97 Ventilator 50% / 0238 25 / 0232 108 15 184/101 /16 0200 111 20 184/101 /16 0052 25 /16 0000 98.4 111 20 164/100 08/16 0000 97 Ventilator 25% 08/15 2300 98.4 111 20 164/100 97 Ventilator 25% 08/15 2206 25 08/15 2200 113 22 169/81 08/15 1999 99.1 106 14 148/90 /1999 99 Ventilator 25% 08/15 1921 25 08/15 1630 25 08/15 1600 98.8 98 18 140/80 96 Ventilator 25% 08/15 1600 97 Ventilator 25% 08/15 1355 25 08/15 1200 96 Ventilator 25% 08/15 1155 25 Intake & Output 16 1600 08/16 0800 /16 0000 08/15 1600 08/15 0800 08/15 0000 Intake Total 852 1043 1243 1135 899.6 Output Total 1270 2250 1300 1525 1850 Balance -418 -1207 -57 -390 -950.4 Intake, IV 512 372 493 465 144.6 Intake, Oral 0 Intake, Other 90 Intake, Tube 340 471 460 470 455 Feeding Intake, Tube 200 200 200 300 Irrigant Number 2 1 1 1 3 Bowel Movements Output, Urine 1270 2250 1300 1525 1850 Patient 185 lb Weight Physical Exam: Tachycardic. Opens eyes and stares. Does not follow command. Per nurse only looks to right. Intubated. Does not move limbs on her own. Current Medications: Current Medications Sig/Davon Start time Last Medication Dose Route Stop Time Status Admin Acetylcysteine 600 MG BID 02/25 0900 AC PO 02/25 2200 Albuterol Sulfate 3 ML BID 02/25 0900 AC 02/25 INH 0809 Alteplase, 1 MG ONCE ONE 02/24 1830 DC 02/24 Recombinant IPL 02/24 1831 2106 Ceftazidime 1,000 MG ONCE ONE 02/25 0400 DC 02/25 IV 02/25 0401 0517 Dexmedetomidine HCl 400 MCG Q8H 02/25 0900 AC 02/25 Sodium Chloride 96 ML IV 0956 Dexmedetomidine HCl 400 MCG Q24H 02/24 2359 DC 02/25 Sodium Chloride 96 ML IV 02/25 0859 0102 Docusate Sodium 100 MG DAILY NEEDED PRN 02/22 1115 AC PO Fentanyl Citrate 1,000 MCG Q5H 02/25 0600 AC 02/25 Dextrose/Water 250 ML IV 0637 Fentanyl Citrate 100 MCG ONCE ONE 02/25 0530 DC 02/25 IV 02/25 0531 0430 Fentanyl Citrate 0 .STK-MED ONE 02/25 0413 DC .ROUTE Fentanyl Citrate 100 MCG ONCE ONE 02/25 0400 DC 02/25 IV 02/25 0401 0400 Fentanyl Citrate 1,000 MCG Q18H 02/24 1830 DC 02/24 Dextrose/Water 250 ML IV 1817 Fentanyl Citrate 1,000 MCG Q16H 02/24 1215 DC Dextrose/Water 250 ML IV 02/24 1830 Fentanyl Citrate 1,000 MCG Q14H 02/24 0600 DC 02/24 Dextrose/Water 250 ML IV 0628 Folic Acid 1 MG DAILY 02/21 1024 AC 02/25 PO 0956 Heparin Sodium 5,000 UNIT Q8 02/20 2200 AC 02/25 (Porcine) SC 0637 Labetalol HCl 10 MG ONCE ONE 02/25 0230 DC 02/25 IV 02/25 0231 0232 Labetalol HCl 0 .STK-MED ONE 02/25 0230 DC IV Lorazepam 2 MG ONCE ONE 02/25 0530 DC 02/25 IV 02/25 0531 0430 Lorazepam 0 .STK-MED ONE 02/25 0418 DC .ROUTE Lorazepam 100 MG Q28H 02/23 0745 DC 02/23 Dextrose/Water 1,000 ML IV 0839 Magnesium Sulfate 1 GM Q2H 02/25 0730 AC 02/25 Dextrose/Water 100 ML IV 02/25 1129 0829 Magnesium Sulfate 1 GM ONCE ONE 02/24 0730 DC 02/24 Dextrose/Water 100 ML IV 02/24 1129 0826 Multivitamins 1 TAB DAILY 02/21 1024 AC 02/25 PO 0956 Non-Formulary 0 SEE ADMIN CRITERIA 02/24 2245 DC Medication ANY Oxycodone HCl 5 MG TID 02/24 1006 AC 02/25 PO 0957 Pantoprazole Sodium 40 MG DAILY 02/20 0900 AC 02/25 IV 0956 Polyethylene Glycol 17 GM DAILY 02/22 1130 AC 02/25 PO 0956 Senna 187 MG AT BEDTIME PRN 02/22 1115 AC 02/22 PO 1250 Thiamine HCl 500 MG Q8H 02/21 1800 AC 02/25 Sodium Chloride 250 ML IV 0956 Thiamine HCl 100 MG DAILY 02/21 1025 AC 02/25 PO 0956 Vancomycin HCl 1,500 MG Q24H 02/25 06 DC Sodium Chloride 250 ML IV Vancomycin HCl 1,500 MG Q24H 02/25 0600 DC 02/25 Sodium Chloride 250 ML IV 02/25 0729 0637 Vancomycin HCl 1,500 MG ONCE ONE 02/25 0400 CAN IV 02/25 0401 Results Last 24 Hours of Lab Results: Laboratory Tests 02/25 02/25 0614 0500 Blood Gas pH (7.35 - 7.45 PH) 7.46 H pCO2 (35 - 45 TORR) 30 L pO2 (80 - 100 TORR) 83 HCO3 (21 - 28 MEQ/L) 20 L ABG O2 Sat (Measured) (>96.0 %) 96.0 P-50 (Temp Corrected) N Carboxyhemoglobin (1.5 - 5.0 %) 0.3 L O2 Concentration % .50 Respiration Rate (BPM) 12 O2 Delivery Method VENT Vent Mode A/C Expiratory Pressure (CMH2O/P) 5 Tidal Volume (CC) 550 Chemistry Sodium (137 - 145 mmol/L) 139 Potassium (3.5 - 5.1 mmol/L) 4.1 Chloride (98 - 107 mmol/L) 107 Carbon Dioxide (22 - 30 mmol/L) 24 Anion Gap (5 - 16) 8 BUN (7 - 17 mg/dL) 11 Creatinine (0.5 - 1.0 mg/dL) 0.5 Estimated GFR (>60 ml/min) > 60 Glucose (65 - 99 mg/dL) 150 H Lactic Acid (0.7 - 2.1 mmol/L) 1.6 Calcium (8.4 - 10.2 mg/dL) 8.2 L Phosphorus (2.5 - 4.5 mg/dL) 5.1 H Magnesium (1.6 - 2.3 mg/dL) 1.5 L Total Bilirubin (0.2 - 1.3 mg/dL) 0.4 AST (14 - 36 U/L) 34 ALT (9 - 52 U/L) 43 Troponin I (< 0.11 ng/ml) 0.28 *H [id number] Pept (<125 pg/mL) 3320 H Albumin (3.5 - 5.0 g/dL) 2.9 L Hematology CBC w Diff NO MAN DIFF REQ WBC (4.8 - 10.8 /CUMM) 12.5 H RBC (4.20 - 5.40 /CUMM) 2.94 L Hgb (12.0 - 16.0 G/DL) 9.1 L Hct (37 - 47 %) 27.2 L MCV (81.0 - 99.0 FL) 92.5 MCH (27.0 - 31.0 PG) 31.0 MCHC (33.0 - 37.0 G/DL) 33.6 RDW (11.5 - 14.5 %) 15.1 H Plt Count (130 - 400 /CUMM) 212 MPV (7.4 - 10.4 FL) 7.7 Gran % (42.2 - 75.2 %) 86.6 H Lymphocytes % (20.5 - 51.1 %) 5.2 L Monocytes % (1.7 - 9.3 %) 6.1 Eosinophils % (0 - 5 %) 1.2 Basophils % (0.0 - 2.0 %) 0.9 Absolute Granulocytes (1.4 - 6.5 /CUMM) 10.8 H Absolute Lymphocytes (1.2 - 3.4 /CUMM) 0.6 L Absolute Monocytes (0.10 - 0.60 /CUMM) 0.8 H Absolute Eosinophils (0.0 - 0.7 /CUMM) 0.1 Absolute Basophils (0.0 - 0.2 /CUMM) 0.1 Miscellaneous Phlebotomy Draw Site LEFT BRACHIAL 02/25 02/24 6606 1530 Hematology CBC w Diff NO MAN DIFF REQ WBC (4.8 - 10.8 /CUMM) 7.4 RBC (4.20 - 5.40 /CUMM) 2.70 L Hgb (12.0 - 16.0 G/DL) 8.3 L Hct (37 - 47 %) 25.2 L MCV (81.0 - 99.0 FL) 93.4 MCH (27.0 - 31.0 PG) 30.7 MCHC (33.0 - 37.0 G/DL) 32.9 L RDW (11.5 - 14.5 %) 15.0 H Plt Count (130 - 400 /CUMM) 224 MPV (7.4 - 10.4 FL) 7.0 L Gran % (42.2 - 75.2 %) 70.7 Lymphocytes % (20.5 - 51.1 %) 17.8 L Monocytes % (1.7 - 9.3 %) 7.4 Eosinophils % (0 - 5 %) 3.8 Basophils % (0.0 - 2.0 %) 0.3 Absolute Granulocytes (1.4 - 6.5 /CUMM) 5.2 Absolute Lymphocytes (1.2 - 3.4 /CUMM) 1.3 Absolute Monocytes (0.10 - 0.60 /CUMM) 0.5 Absolute Eosinophils (0.0 - 0.7 /CUMM) 0.3 Absolute Basophils (0.0 - 0.2 /CUMM) 0 Urines Urine Color (YEL,AMB,STR) YEL Urine Clarity (CLEAR) HAZY H Urine pH (5.0 - 8.0) 6.0 Ur Specific [place] (1.001 - 1.035) >= 1.030 Urine Protein (NEG,<30 MG/DL) 100 H Urine Ketones (NEG) NEG Urine Nitrite (NEG) NEG Urine Bilirubin (NEG) NEG Urine Urobilinogen (0.1 - 1.0 EU/dl) 0.2 Ur Leukocyte Esterase (NEG) TRACE H Ur Microscopic SEDIMENT EXAMINED Urine RBC (0 - 5 /HPF) >75 H Urine WBC (0 - 2 /HPF) 5-10 H Ur Epithelial Cells (NONE,FEW) FEW Urine Bacteria (NEG/NONE) MOD H Urine Hemoglobin (NEG) LARGE H Urine Glucose (N MG/DL) 250 H Recent Imaging Studies: NCHCT normal. Assessment/Plan Assessment: 62 year old with what seems like overdose on opiate medication, hypovolumic shock, possible sepsis, now corrected with exception of infection. My suspicion that the reason for the slow recovery in mental status is the very high level of opiates in her blood stream which take a long time to clear espcially due to the fact that her kidneys were in shut down mode for a while. Further contributors may be infection of unknown source of possible PE. Plan: 1. Repeat EEG 2. Cut down all opiate and benzos to minimum. 3. Treat for infection. 4. CT of chest to r/o PE.
--- NOTE | 2018-02-25 10:29 | CT SCAN REPORT ---
EXAMINATION: CT CHEST PE STUDY. CT ABDOMEN AND PELVIS WITH CONTRAST CLINICAL INFORMATION: Tachycardia, tachypnea, decreased saturation on ventilation. Presumptive diagnosis of pulmonary embolism. Elevated white blood cell count and tachycardia on ventilator. Chest x-ray negative for aspiration pneumonia. Presumptive diagnosis any source of infection. COMPARISON: Renal ultrasound dated 02/18/2018. TECHNIQUE: Prior to contrast administration, localization images were obtained. After the administration of 95 mL of intravenous Optiray 350, multidetector CT volume acquisition of the chest was performed. 3-D postprocessing was performed with multiplanar reconstructions and MIP images obtained at the acquisition workstation under concurrent physician supervision. Multidetector CT helical images of the abdomen and pelvis were then performed. The data set was reformatted in the coronal and sagittal planes and reviewed on an independent workstation. DLP: 2222.19 mGy-cm. FINDINGS: CHEST: LUNGS: Lungs bilaterally are symmetrically expanded and demonstrate a diffuse alveolar airspace infiltrate throughout the right lung and the left lower lobe and to a lesser extent the left lung apex. Findings are suspicious for a diffuse pneumonia. No effusion or pneumothorax is seen. Central airways are patent. Endotracheal tube is in place with tip approximately 3 cm above the manuel. Pulmonary arteries: The bolus timing on this study was acceptable for visualization of the pulmonary arterial tree. Evaluation is, however, significantly limited by streak artifact related to the patient's arms. There are no intraluminal pulmonary arterial filling defects present to suggest pulmonary embolism in the main pulmonary artery, right and left main pulmonary artery. Multiple pseudodefects are seen within the segmental and subsegmental pulmonary arteries bilaterally. In addition, in the left upper lobe, several of the subsegmental branches (series 2, image 129) show filling defects, which are suspicious for pulmonary emboli. There is also likely a small pulmonary embolus in a subsegmental branch of the left lower lobe (series 2, image 268) Aorta and heart: The heart is normal in size. The ascending aorta is ectatic, measuring 3.7 cm in maximal AP diameter. Conjoint origin of the right brachiocephalic and the left common carotid arteries is seen. A left PICC line is in place with tip at the cavoatrial junction. No leftward bowing of the interventricular septum is seen and no reflux of contrast into the IVC is noted. There is no pericardial effusion Lymphatic structures: Nonspecific subcentimeter sized mediastinal lymph nodes are seen without pathologic enlargement, likely reactive to the pulmonary process. There is no lymphadenopathy. Bones: No significant focal findings. ABDOMEN AND PELVIS: LIVER, GALLBLADDER, BILIARY TREE: Liver normal size and attenuation. No focal cystic or solid mass or intra-or extrahepatic ductal dilatation. Hepatic and portal veins patent. The gallbladder partially distended and within normal limits. PANCREAS: There is diffuse fatty infiltration in the pancreatic head and diffuse atrophy of the pancreatic body and tail. No ductal dilatation, mass, or surrounding stranding. SPLEEN: Normal size and appearance. Splenic vein patent. ADRENAL GLANDS AND KIDNEYS: Adrenal glands normal. Kidneys bilaterally symmetric in size and function. There is a 0.5 cm mid left renal low-attenuation mass and other smaller lower pole left renal masses, too small to characterize, likely tiny cysts. These are not appreciated on the prior renal ultrasound. No focal mass, hydronephrosis, nephrolithiasis or perinephric stranding. URETERS AND BLADDER: Ureters decompressed and within normal limits. Bladder completely decompressed by a Shine catheter. PELVIC VISCERA: Uterus and adnexa are unremarkable. No suspicious adnexal mass. Small amount of free fluid seen in the pelvis. BOWEL LOOPS: Normal. Small and large bowel loops decompressed. Appendix in right lower quadrant normal. ABDOMINAL WALL: There is a small fat-containing umbilical hernia. LYMPHOVASCULAR STRUCTURES: Abdominal aorta normal in caliber. No periaortic collections. No abdominal or pelvic adenopathy or free fluid collection. BONES: Mild vertebral spondylosis and facet arthropathy noted in the mid and lower lumbar spine. No suspicious bone findings. IMPRESSION: 1. Limited assessment of the pulmonary arteries. There are, however findings in the left upper lobe and left lower lobe, which is suspicious for small subsegmental branch pulmonary emboli. 2. Diffuse bilateral alveolar airspace opacities is seen, with relative sparing of the left upper lobe. Findings are suspicious for diffuse pneumonia. Associated mild reactive mediastinal adenopathy is seen. 3. Fatty infiltration of the pancreatic head and atrophy of the pancreas. 4. Left renal low-attenuation masses, likely cysts. 5. Small fat-containing umbilical hernia. This critical result was discussed with Dr. Flaca Brantley 02/25/2018, 10:26 AM and it was ascertained that the content and urgency of this report was understood at the time of direct communication.
[2018-02-25 13:15] LABS: ABSOLUTE BASOPHIL COUNT 0 /CUMM (0.0-0.2); ABSOLUTE EOSINOPHIL COUNT 0.1 /CUMM (0.0-0.7); ABSOLUTE GRANULOCYTE CT 9.7 /CUMM (1.4-6.5); ABSOLUTE MONOCYTE COUNT 0.6 /CUMM (0.10-0.60); BASOPHIL % 0.2 % (0.0-2.0); EOSINOPHIL % 0.5 % (0-5); HEMATOCRIT 23.2 % (37-47); MEAN CORPUSCULAR HGB CONC 33.4 G/DL (33.0-37.0); MEAN CORPUSCULAR VOLUME 92.9 FL (81.0-99.0); MEAN PLATELET VOLUME 7.9 FL (7.4-10.4); PLATELET COUNT 176 /CUMM (130-400); RBC DISTRIBUTION WIDTH 15.1 % (11.5-14.5); WHITE BLOOD CELL COUNT 11.4 /CUMM (4.8-10.8)
[2018-02-25 13:18] LABS: GRANULOCYTE % 84.9 % (42.2-75.2)
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
--- NOTE | 2018-02-25 17:22 | ULTRASOUND REPORT ---
EXAMINATION: RIGHT UPPER EXTREMITY VENOUS DOPPLER ULTRASOUND CLINICAL INFORMATION: PICC line couple of days back. Subsegmental PE on CTA. Presumptive diagnosis of DVT of right arm. COMPARISON: None. TECHNIQUE: Doppler spectral analysis and color flow Doppler imaging was performed of the right upper extremity. Compression and augmentation maneuvers were performed. FINDINGS: The the right internal jugular vein, subclavian vein and brachiocephalic vein of found to be patent with normal color flow demonstrated. A PICC line is seen in place. There is no definite echogenic thrombus seen surrounding the PICC line. However, in the upper right axillary vein, no definite flow with color Doppler and spectral waveform assessment could be verified. In the lower right axillary vein, normal flow is seen. Similarly, in the upper brachial vein which contains the PICC line, no echogenic thrombus is seen but no definite flow is demonstrated with the color Doppler or spectral waveform. There is normal flow within the paired brachial vein which does not have the PICC line in its lumen. A large portion of the mid brachial veins is obscured due to overlying bandage. The lower brachial veins are patent and normally compressible. The right basilic vein is patent with normal color flow and compressibility seen in the mid and lower segments. The upper segment of the basilic vein is obscured by a bandage. The right lower cephalic vein compresses normally. In the mid and upper right cephalic vein, with the incomplete vascular flow is seen and low-level internal echoes are noted, consistent with a nonocclusive superficial venous thrombosis. There is normal blood flow in the upper right cephalic vein. IMPRESSION: 1. Limited study with segments of the mid brachial veins and the upper segment of the basilic vein not visualized due to overlying bandage. 2. A PICC line is in place. One of the right brachial veins and the right upper axillary vein show no definite flow around the PICC line catheter, though no echogenic thrombus is seen. Findings are likely related to slow flow around the catheter. Short interval follow-up ultrasound in 7-10 days is recommended for reassessment and exclusion of progression to a DVT. This would also allow reassessment for potential proximal clot propagation from a nonvisualized portion of the brachial veins, which are obscured by the bandage. 3. Nonocclusive superficial venous thrombosis is seen in the mid and upper right cephalic vein. Reassessment with follow-up ultrasound in 7-10 days as suggested above would allow exclusion of proximal clot propagation. This emergent test result was discussed with Dr. Belen Munoz 02/25/2018, 5:15 PM.
[2018-02-25 18:49] LABS: ABSOLUTE BASOPHIL COUNT 0 /CUMM (0.0-0.2); ABSOLUTE EOSINOPHIL COUNT 0.1 /CUMM (0.0-0.7); ABSOLUTE GRANULOCYTE CT 7.8 /CUMM (1.4-6.5); ABSOLUTE LYMPH COUNT 1.6 /CUMM (1.2-3.4); ABSOLUTE MONOCYTE COUNT 0.8 /CUMM (0.10-0.60); BASOPHIL % 0.2 % (0.0-2.0); EOSINOPHIL % 1.2 % (0-5); GRANULOCYTE % 75.8 % (42.2-75.2); HEMATOCRIT 21.7 % (37-47); MEAN CORPUSCULAR HGB 30.9 PG (27.0-31.0); MEAN CORPUSCULAR HGB CONC 33.2 G/DL (33.0-37.0); PLATELET COUNT 165 /CUMM (130-400); RBC DISTRIBUTION WIDTH 15.4 % (11.5-14.5); RED BLOOD CELL CT 2.33 /CUMM (4.20-5.40); WHITE BLOOD CELL COUNT 10.2 /CUMM (4.8-10.8)
[2018-02-25 18:57] LABS: PTT 94 SEC (25-37)
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
[2018-02-26] VITALS: BP 120/70
[2018-02-26 01:29] LABS: ABSOLUTE BASOPHIL COUNT 0 /CUMM (0.0-0.2); ABSOLUTE EOSINOPHIL COUNT 0.2 /CUMM (0.0-0.7); ABSOLUTE GRANULOCYTE CT 8.1 /CUMM (1.4-6.5); ABSOLUTE LYMPH COUNT 1.7 /CUMM (1.2-3.4); ABSOLUTE MONOCYTE COUNT 0.9 /CUMM (0.10-0.60); BASOPHIL % 0.2 % (0.0-2.0); GRANULOCYTE % 74.3 % (42.2-75.2); MEAN CORPUSCULAR HGB 30.7 PG (27.0-31.0); MEAN CORPUSCULAR HGB CONC 33.7 G/DL (33.0-37.0); MEAN CORPUSCULAR VOLUME 91.2 FL (81.0-99.0); MEAN PLATELET VOLUME 7.7 FL (7.4-10.4); PLATELET COUNT 174 /CUMM (130-400); RED BLOOD CELL CT 2.74 /CUMM (4.20-5.40)
[2018-02-26 03:10] LABS: PTT 73 SEC (25-37)
[2018-02-26 05:32] LABS: ABSOLUTE BASOPHIL COUNT 0 /CUMM (0.0-0.2); ABSOLUTE EOSINOPHIL COUNT 0.2 /CUMM (0.0-0.7); ABSOLUTE GRANULOCYTE CT 6.3 /CUMM (1.4-6.5); ABSOLUTE LYMPH COUNT 1.3 /CUMM (1.2-3.4); ABSOLUTE MONOCYTE COUNT 0.7 /CUMM (0.10-0.60); BASOPHIL % 0.5 % (0.0-2.0); EOSINOPHIL % 2.5 % (0-5); GRANULOCYTE % 73.8 % (42.2-75.2); HEMATOCRIT 23.2 % (37-47); MEAN CORPUSCULAR HGB 30.5 PG (27.0-31.0); MEAN CORPUSCULAR HGB CONC 33.1 G/DL (33.0-37.0); MEAN CORPUSCULAR VOLUME 92.2 FL (81.0-99.0); MEAN PLATELET VOLUME 7.7 FL (7.4-10.4); PLATELET COUNT 171 /CUMM (130-400); RBC DISTRIBUTION WIDTH 15.5 % (11.5-14.5); RED BLOOD CELL CT 2.52 /CUMM (4.20-5.40); WHITE BLOOD CELL COUNT 8.5 /CUMM (4.8-10.8)
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
[2018-02-26 08:00] VITALS: BP 94/50
--- NOTE | 2018-02-26 08:18 | RADIOLOGY REPORT ---
EXAMINATION: XR PORTABLE CHEST CLINICAL INFORMATION: ICU check. COMPARISON: Multiple prior chest x-rays, most recent of which is dated 02/25/2018. CTA of the chest dated 02/25/2018. TECHNIQUE: Portable AP semiupright view of the chest was obtained. FINDINGS: Multiple EKG leads overlie the chest. Endotracheal tube is in place with tip approximately 4 cm above the manuel. Enteric tube courses into the abdomen with tip not included. The right subclavian PICC line is in place with tip at the cavoatrial junction. The cardiac mediastinal silhouette appears slightly larger than on the prior study, likely due to projectional differences and differences in lung inspiration. Low lung volumes are seen. There are diffuse parenchymal opacities throughout the right lung and a few patchy parenchymal opacities in the left retrocardiac lung base, similar to prior study when aligned for differences in technique. Slight motion artifact limits assessment. No definite pneumothorax is seen. Bony structures are grossly unremarkable. IMPRESSION: 1. Endotracheal tube tip in place with tip 4 cm above the manuel. 2. Enteric tube tip not included. 3. Right subclavian PICC line tip at the cavoatrial junction. 4. No significant change in diffuse right lung and patchy left lower lung airspace opacities.
--- NOTE | 2018-02-26 08:31 | PN- CRCU ---
Subjective HPI/Critical Care Issues: The patient has significantly improved since last night. Yesterday, the patient had hypotension requiring fluid boluses. She was noted to be anemic and required transfusion. Her mental status was not improved. This morning however her oxygen requirement is down to 30%. She is awake, alert, moving all extremities independently and following commands. She remains on Precedex and fentanyl. She denies pain. She is afebrile. The patient has excellent urine output. Tube feeds remain off due to possible aspiration. Overall the patient has significantly improved. Objective Current Medications: Current Medications Sig/Davon Start time Last Medication Dose Route Stop Time Status Admin Acetylcysteine 600 MG BID 02/25 09 DC 02/25 PO 02/25 2200 2207 Albuterol Sulfate 3 ML BID 02/25 0900 AC 02/25 INH 1915 Bisacodyl 10 MG ONCE ONE 02/25 1200 DC 02/25 [place] 02/25 1201 1221 Ceftazidime 1,000 MG Q8H 02/25 1300 AC 02/26 IV 0550 Dexmedetomidine HCl 400 MCG Q8H 02/26 1200 AC Sodium Chloride 96 ML IV Dexmedetomidine HCl 400 MCG Q8H 02/25 0900 AC 02/26 Sodium Chloride 96 ML IV 02/26 1159 0255 Dexmedetomidine HCl 400 MCG Q24H 02/24 2359 DC 02/25 Sodium Chloride 96 ML IV 02/25 0859 0102 Docusate Sodium 100 MG DAILY NEEDED PRN 02/22 1115 AC PO Fentanyl Citrate 1,000 MCG Q7H 02/26 0230 AC 02/26 Dextrose/Water 250 ML IV 0334 Fentanyl Citrate 1,000 MCG Q5H 02/25 0600 DC 02/25 Dextrose/Water 250 ML IV 02/26 0230 1919 Folic Acid 1 MG DAILY 02/21 1024 AC 02/25 PO 0956 Heparin Sodium 25,000 UNIT Q24H 02/25 1115 AC 02/25 (Porcine) IV 1246 Sodium Chloride 500 ML Heparin Sodium 5,000 UNIT Q8 02/20 2200 DC 02/25 (Porcine) SC 0637 Magnesium Sulfate 1 GM Q2H 02/25 0730 DC 02/25 Dextrose/Water 100 ML IV 02/25 1129 1127 Multivitamins 1 TAB DAILY 02/21 1024 AC 02/25 PO 0956 Norepinephrine 4 MG Q24H 02/25 1930 AC 02/25 Sodium Chloride 250 ML IV 2208 Oxycodone HCl 5 MG TID 02/24 1006 AC 02/25 PO 1333 Pantoprazole Sodium 40 MG DAILY 02/20 0900 AC 02/25 IV 0956 Polyethylene Glycol 17 GM DAILY 02/22 1130 AC 02/25 PO 0956 Senna 187 MG AT BEDTIME PRN 02/22 1115 AC 02/22 PO 1250 Sodium Chloride 1,000 ML BOLUS ONE 02/25 1945 DC 02/25 IV 02/25 Sodium Chloride 500 ML BOLUS ONE 02/25 1815 DC 02/25 IV 02/25 1914 184 Sodium Chloride 500 ML BOLUS ONE 02/25 1700 DC 02/25 IV 02/25 1759 1733 Thiamine HCl 500 MG Q8H 02/21 1800 DC 02/26 Sodium Chloride 250 ML IV 0254 Thiamine HCl 100 MG DAILY 02/21 1025 DC 02/25 PO 0956 Vancomycin HCl 1,000 MG Q12H 02/26 0600 AC 02/26 Sodium Chloride 250 ML IV 0553 Vancomycin HCl 1,500 MG Q12H 02/25 1800 DC 02/25 Sodium Chloride 250 ML IV 1920 Vancomycin HCl 1,500 MG DAILY 02/25 1038 CAN IV Vital Signs & I&O Last 24 Hrs of Vitals and I&O: Vital Signs Date Time Temp Pulse Resp B/P B/P Pulse O2 O2 Flow FiO2 Mean Ox Delivery Rate 02/26 0543 30 02/26 0400 97 Ventilator 30% 02/26 0230 30 02/26 0054 30 02/26 0000 98.1 71 12 120/70 02/26 0000 98.1 71 12 120/70 97 Ventilator 30% 02/26 0000 97 Ventilator 30% 02/25 2208 98.4 79 12 82/49 02/25 2201 30 02/25 2200 98.4 76 12 135/68 02/25 2100 100 Ventilator 30% 02/25 2000 98.4 82 15 74/39 / 1923 30 02/25 1800 97.8 80 12 74/42 02/25 1640 30 02/25 1600 97.8 81 12 80/40 02/25 1600 95 Ventilator 30% 02/25 1600 97.8 81 12 80/40 95 Ventilator 30% 02/25 1400 90 13 132/83 02/25 1349 35 02/25 1221 Ventilator 40% 02/25 1200 99.3 104 14 100/60 08/16 1200 100 Ventilator 35% 08 1200 99.3 104 14 100/60 100 Ventilator 35% 08/16 1130 40 /16 1000 88 16 122/58 Intake & Output 02/26 1600 02/26 0800 08 0000 Intake Total 1039 3570.3 Output Total 363 388 Balance 676 3182.3 Intake, Blood 350 Product Intake, IV 1039 3120.3 Intake, Other 100 Number 1 Bowel Movements Output, Urine 363 388 Patient 187 lb Weight Exam General Appearance: intubated, awake, comfortable, following commands, moving all extremities Head: atraumatic, pupils are equal and reactive bilaterally Neck: supple Respiratory: Bilateral rhonchi heard anteriorly Cardiovascular: regular rate/rhythm Abdomen: normal bowel sounds, soft, non-tender Extremities: no edema Skin: intact, normal color, warm/dry Impression/Plan Impression/Plan Impression/Plan: 1. Ongoing respiratory failure, on mechanical ventilation. The patient has bilateral airspace opacities, however her oxygen level has significantly improved noting she is down to 30%. She also has minimal secretions. Cultures are negative so far. Because the patient's respiratory status and oxygenation have dramatically improved quickly, this recent worsening of her respiratory status is most likely related to fluid, and less likely related to infection or ARDS. 2. Acute pulmonary emboli, with positive troponin. 3. Right upper extremity DVT. 4. Anemia, without evidence of active bleeding, status post transfusion 1 unit. 5. Acute kidney injury, improved. 6. Hypotension which may have been related to volume/dehydration, improved.\ 7. Chronic pain, chronic opiate dependence. Recommendations: * Continue heparin for therapeutic PTT. * Attempt to wean Precedex off. * Will slowly wean fentanyl drip down to off. * Tube feeds on hold for now. * Begin weaning trials this morning. * Will consider extubation if weaning parameters are acceptable. * Follow-up cultures. * Continue ceftazidime, vancomycin and ID input. * Continue multivitamin, thiamine and folate. * No need for high-dose thiamine at this point. * Vent bundle: DVT and GI prophylaxis at all times. * Continue all supportive care.
--- NOTE | 2018-02-26 11:35 | PN- Infect Dx ---
Subjective Subjective: Afebrile without complaints Objective Last 24 Hrs of Vital Signs/I&O Vital Signs Date Time Temp Pulse Resp B/P B/P Pulse O2 O2 Flow FiO2 Mean Ox Delivery Rate 02/26 0844 30 02/26 0800 100 Ventilator 30% 02/26 0800 97.6 66 18 94/50 99 Ventilator 30% 02/26 0543 30 02/26 0400 97 Ventilator 30% 02/26 0230 30 02/26 0054 30 02/26 0000 98.1 71 12 120/70 08 0000 98.1 71 12 120/70 97 Ventilator 30% 02/26 0000 97 Ventilator 30% 02/25 2208 98.4 79 12 82/49 /16 2201 30 02/25 2200 98.4 76 12 135/68 / 2100 100 Ventilator 30% 02/25 2000 98.4 82 15 74/39 /16 1923 30 02/25 1800 97.8 80 12 74/42 /16 1640 30 /16 1600 97.8 81 12 80/40 /16 1600 95 Ventilator 30% 02/25 1600 97.8 81 12 80/40 95 Ventilator 30% /16 1400 90 13 132/83 / 1349 35 /16 1221 Ventilator 40% 02/25 1200 99.3 104 14 100/60 08/16 1200 100 Ventilator 35% 02/25 1200 99.3 104 14 100/60 100 Ventilator 35% 16 1130 40 Intake & Output 02/26 1600 02/26 0800 02/26 0000 Intake Total 1039 3570.3 Output Total 363 388 Balance 676 3182.3 Intake, Blood 350 Product Intake, IV 1039 3120.3 Intake, Other 100 Number 1 Bowel Movements Output, Urine 363 388 Patient 187 lb Weight Physical Exam Other Physical Findings: She is awake and alert, on the ventilator, in no acute distress Lungs are clear Heart regular rhythm with no murmur Abdomen soft, nontender with positive bowel sounds Extremities 1+ edema all extremities; PICC in the right upper extremity with no inflammation at the site Shine catheter remains in place Results Last 24 Hours of Lab Results: Laboratory Tests 02/26 02/26 02/26 1000 0500 0230 Blood Gas pH (7.35 - 7.45 PH) 7.46 H pCO2 (35 - 45 TORR) 29 L pO2 (80 - 100 TORR) 147 H HCO3 (21 - 28 MEQ/L) 21 ABG O2 Sat (Measured) (>96.0 %) 98.0 P-50 (Temp Corrected) N Carboxyhemoglobin (1.5 - 5.0 %) 0.4 L O2 Concentration % 30% Temperature (97.0 - 100.0 FARH) 97.6 O2 Delivery Method T-PIECE Chemistry Sodium (137 - 145 mmol/L) 132 L Potassium (3.5 - 5.1 mmol/L) 4.4 Chloride (98 - 107 mmol/L) 106 Carbon Dioxide (22 - 30 mmol/L) 24 Anion Gap (5 - 16) 3 L BUN (7 - 17 mg/dL) 13 Creatinine (0.5 - 1.0 mg/dL) 0.5 Estimated GFR (>60 ml/min) > 60 Glucose (65 - 99 mg/dL) 107 H Calcium (8.4 - 10.2 mg/dL) 7.4 L Phosphorus (2.5 - 4.5 mg/dL) 3.5 Magnesium (1.6 - 2.3 mg/dL) 2.1 Total Bilirubin (0.2 - 1.3 mg/dL) 0.6 AST (14 - 36 U/L) 20 ALT (9 - 52 U/L) 35 Albumin (3.5 - 5.0 g/dL) 2.4 L Coagulation APTT (25 - 37 SEC) 73 H Hematology CBC w Diff NO MAN DIFF REQ WBC (4.8 - 10.8 /CUMM) 8.5 RBC (4.20 - 5.40 /CUMM) 2.52 L Hgb (12.0 - 16.0 G/DL) 7.7 L Hct (37 - 47 %) 23.2 L MCV (81.0 - 99.0 FL) 92.2 MCH (27.0 - 31.0 PG) 30.5 MCHC (33.0 - 37.0 G/DL) 33.1 RDW (11.5 - 14.5 %) 15.5 H Plt Count (130 - 400 /CUMM) 171 MPV (7.4 - 10.4 FL) 7.7 Gran % (42.2 - 75.2 %) 73.8 Lymphocytes % (20.5 - 51.1 %) 14.7 L Monocytes % (1.7 - 9.3 %) 8.5 Eosinophils % (0 - 5 %) 2.5 Basophils % (0.0 - 2.0 %) 0.5 Absolute Granulocytes (1.4 - 6.5 /CUMM) 6.3 Absolute Lymphocytes (1.2 - 3.4 /CUMM) 1.3 Absolute Monocytes (0.10 - 0.60 /CUMM) 0.7 H Absolute Eosinophils (0.0 - 0.7 /CUMM) 0.2 Absolute Basophils (0.0 - 0.2 /CUMM) 0 Miscellaneous Phlebotomy Draw Site RIGHT RADIAL 02/26 02/25 02/25 0100 2487 8964 Chemistry Lactic Acid (0.7 - 2.1 mmol/L) 0.7 Cancelled Troponin I (< 0.11 ng/ml) 0.15 *H Hematology CBC w Diff NO MAN DIFF REQ WBC (4.8 - 10.8 /CUMM) 11.0 H RBC (4.20 - 5.40 /CUMM) 2.74 L Hgb (12.0 - 16.0 G/DL) 8.4 L Hct (37 - 47 %) 25.0 L MCV (81.0 - 99.0 FL) 91.2 MCH (27.0 - 31.0 PG) 30.7 MCHC (33.0 - 37.0 G/DL) 33.7 RDW (11.5 - 14.5 %) 15.0 H Plt Count (130 - 400 /CUMM) 174 MPV (7.4 - 10.4 FL) 7.7 Gran % (42.2 - 75.2 %) 74.3 Lymphocytes % (20.5 - 51.1 %) 15.3 L Monocytes % (1.7 - 9.3 %) 8.2 Eosinophils % (0 - 5 %) 2.0 Basophils % (0.0 - 2.0 %) 0.2 Absolute Granulocytes (1.4 - 6.5 /CUMM) 8.1 H Absolute Lymphocytes (1.2 - 3.4 /CUMM) 1.7 Absolute Monocytes (0.10 - 0.60 /CUMM) 0.9 H Absolute Eosinophils (0.0 - 0.7 /CUMM) 0.2 Absolute Basophils (0.0 - 0.2 /CUMM) 0 08/16 08/16 1721 1714 Chemistry Troponin I (< 0.11 ng/ml) 0.33 *H Coagulation APTT (25 - 37 SEC) 94 H Hematology CBC w Diff NO MAN DIFF REQ Cancelled WBC (4.8 - 10.8 /CUMM) 10.2 Cancelled RBC (4.20 - 5.40 /CUMM) 2.33 L Cancelled Hgb (12.0 - 16.0 G/DL) 7.2 *L Cancelled Hct (37 - 47 %) 21.7 L Cancelled MCV (81.0 - 99.0 FL) 93.0 Cancelled MCH (27.0 - 31.0 PG) 30.9 Cancelled MCHC (33.0 - 37.0 G/DL) 33.2 Cancelled RDW (11.5 - 14.5 %) 15.4 H Cancelled Plt Count (130 - 400 /CUMM) 165 Cancelled MPV (7.4 - 10.4 FL) 8.0 Cancelled Gran % (42.2 - 75.2 %) 75.8 H Lymphocytes % (20.5 - 51.1 %) 15.3 L Monocytes % (1.7 - 9.3 %) 7.5 Eosinophils % (0 - 5 %) 1.2 Basophils % (0.0 - 2.0 %) 0.2 Absolute Granulocytes (1.4 - 6.5 /CUMM) 7.8 H Absolute Lymphocytes (1.2 - 3.4 /CUMM) 1.6 Absolute Monocytes (0.10 - 0.60 /CUMM) 0.8 H Absolute Eosinophils (0.0 - 0.7 /CUMM) 0.1 Absolute Basophils (0.0 - 0.2 /CUMM) 0 02/25 1150 Chemistry Sodium (137 - 145 mmol/L) 134 L Potassium (3.5 - 5.1 mmol/L) 4.4 Chloride (98 - 107 mmol/L) 103 Carbon Dioxide (22 - 30 mmol/L) 26 Anion Gap (5 - 16) 5 BUN (7 - 17 mg/dL) 11 Creatinine (0.5 - 1.0 mg/dL) 0.5 Estimated GFR (>60 ml/min) > 60 Glucose (65 - 99 mg/dL) 144 H Calcium (8.4 - 10.2 mg/dL) 7.7 L Phosphorus (2.5 - 4.5 mg/dL) 4.2 Magnesium (1.6 - 2.3 mg/dL) 1.9 Total Bilirubin (0.2 - 1.3 mg/dL) 0.4 AST (14 - 36 U/L) 24 ALT (9 - 52 U/L) 38 Troponin I (< 0.11 ng/ml) 0.48 *H Albumin (3.5 - 5.0 g/dL) 2.5 L Hematology CBC w Diff NO MAN DIFF REQ WBC (4.8 - 10.8 /CUMM) 11.4 H RBC (4.20 - 5.40 /CUMM) 2.50 L Hgb (12.0 - 16.0 G/DL) 7.8 L Hct (37 - 47 %) 23.2 L MCV (81.0 - 99.0 FL) 92.9 MCH (27.0 - 31.0 PG) 31.0 MCHC (33.0 - 37.0 G/DL) 33.4 RDW (11.5 - 14.5 %) 15.1 H Plt Count (130 - 400 /CUMM) 176 MPV (7.4 - 10.4 FL) 7.9 Gran % (42.2 - 75.2 %) 84.9 H Lymphocytes % (20.5 - 51.1 %) 8.9 L Monocytes % (1.7 - 9.3 %) 5.5 Eosinophils % (0 - 5 %) 0.5 Basophils % (0.0 - 2.0 %) 0.2 Absolute Granulocytes (1.4 - 6.5 /CUMM) 9.7 H Absolute Lymphocytes (1.2 - 3.4 /CUMM) 1.0 L Absolute Monocytes (0.10 - 0.60 /CUMM) 0.6 Absolute Eosinophils (0.0 - 0.7 /CUMM) 0.1 Absolute Basophils (0.0 - 0.2 /CUMM) 0 Last 24 Hours of Cameron Results: Blood cultures 2 February 25 negative Sputum culture February 25 scant growth of mixed james Urine culture February 25 negative Recent Imaging Studies: Chest x-ray February 26 no change in the diffuse right lung and patchy left lower lobe airspace opacities Doppler of the right upper extremity, limited secondary to the overlying bandage , reveals a nonocclusive superficial venous thrombosis in the mid and upper right cephalic vein Assessment/Plan ID Impression: Markedly improved, with no further fevers and with her white blood cell count normal, on empiric treatment with Vancomycin and Ceftazidime, Day 2 for possible healthcare associated pneumonia, though, given her rapid improvement, suspect that her bilateral densities represent fluid, particularly given her I's and O' s. If her sputum culture does not grow any organisms feel that her antibiotics should be able to be discontinued. She remains on Heparin for acute pulmonary emboli, which may explain her recent fever, with the right upper extremity Doppler results noted and of unclear significance. Suggestion: 1. Follow-up recent cultures 2. Remove Shine catheter once she is extubated 3. Continue Vancomycin and Ceftazidime pending above Pauly Smith MD will be covering over the weekend
[2018-02-26 16:00] VITALS: BP 128/60
[2018-02-26 16:10] LABS: PTT 52 SEC (25-37)
--- NOTE | 2018-02-26 17:55 | PN- Cardiology ---
Subjective Subjective: * Patient is now alert and responsive. She denies any chest discomfort. Objective Vital Signs and I&Os Vital Signs Date Time Temp Pulse Resp B/P B/P Pulse O2 O2 Flow FiO2 Mean Ox Delivery Rate 02/26 1730 99 Nasal 2.0L Cannula 02/26 1600 97 Nasal 3.5L Cannula 02/26 1600 97.9 100 18 128/60 96 Nasal 2.0L Cannula 02/26 1200 96 Nasal 2.0L Cannula 02/26 0844 30 02/26 0800 100 Ventilator 30% 02/26 0800 97.6 66 18 94/50 99 Ventilator 30% 02/26 0543 30 02/26 0400 97 Ventilator 30% 02/26 0230 30 02/26 0054 30 02/26 0000 98.1 71 12 120/70 02/26 0000 98.1 71 12 120/70 97 Ventilator 30% 02/26 0000 97 Ventilator 30% 02/25 2208 98.4 79 12 82/49 02/25 2201 30 02/25 2200 98.4 76 12 135/68 02/25 2100 100 Ventilator 30% 02/25 2000 98.4 82 15 74/39 02/25 1923 30 02/25 1800 97.8 80 12 74/42 Intake & Output 02/26 1600 02/26 0800 02/26 0000 02/25 1600 02/25 0800 02/25 0000 Intake Total 404 1039 3570.3 3009 275 4286 Output Total 640 363 409 340 7145 2250 Balance -517 725 2154.3 702 -418 -1207 Intake, Blood 350 Product Intake, IV 404 1039 3120.3 1000 512 372 Intake, Other 100 Intake, Tube 132 340 471 Feeding Intake, Tube 370 200 Irrigant Number 1 0 2 1 Bowel Movements Output, Urine 640 363 697 483 8466 2250 Patient 187 lb Weight Physical Exam: General: WD/WN female in NAD; Intubated, awake but unresponsive HEENT: NC/AT, PERRL, EOMI Neck: no JVD, no carotid bruit Heart: RRR w/o murmur Lungs: clear anteriorly bilaterally ABdomen: soft, NT, +ve bowel sounds Extemities: no edema Assessment/Plan Assessment/Plan * This patient has multiple, mildly elevated troponins without ischemic electrocardiographic changes. She now is communicative and denies chest discomfort. Her positive troponins are almost certainly related to her pulmonary emboli. Although this patient has a low H/H she will ideally benefit from anticoagulation especially since she continues to be sedentary. Continue telemetry? Yes
[2018-02-26 20:00] VITALS: BP 128/72
[2018-02-26 22:00] VITALS: BP 143/67
[2018-02-26 23:11] LABS: PTT 79 SEC (25-37)
[2018-02-27] VITALS: BP 134/74
[2018-02-27 02:00] VITALS: BP 134/66
[2018-02-27 04:00] VITALS: BP 122/72
[2018-02-27 04:33] LABS: ABSOLUTE BASOPHIL COUNT 0 /CUMM (0.0-0.2); ABSOLUTE EOSINOPHIL COUNT 0.3 /CUMM (0.0-0.7); ABSOLUTE GRANULOCYTE CT 5.9 /CUMM (1.4-6.5); ABSOLUTE LYMPH COUNT 1.2 /CUMM (1.2-3.4); ABSOLUTE MONOCYTE COUNT 0.8 /CUMM (0.10-0.60); BASOPHIL % 0.1 % (0.0-2.0); EOSINOPHIL % 3.1 % (0-5); GRANULOCYTE % 71.8 % (42.2-75.2); HEMATOCRIT 22.7 % (37-47); MEAN CORPUSCULAR HGB CONC 33.9 G/DL (33.0-37.0); MEAN CORPUSCULAR VOLUME 91.5 FL (81.0-99.0); MEAN PLATELET VOLUME 7.6 FL (7.4-10.4); PLATELET COUNT 228 /CUMM (130-400); RBC DISTRIBUTION WIDTH 15.1 % (11.5-14.5); RED BLOOD CELL CT 2.48 /CUMM (4.20-5.40); WHITE BLOOD CELL COUNT 8.3 /CUMM (4.8-10.8)
[2018-02-27 06:00] VITALS: BP 141/64
[2018-02-27 08:00] VITALS: BP 140/70
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
--- NOTE | 2018-02-27 10:17 | PN- CRCU ---
Subjective HPI/Critical Care Issues: No overnight events. Patient remained afebrile overnight. Seen and examined this morning. Patient was extubated yesterday. She is on 2 dates of oxygen maintaining saturation 97%. Patient is alert and oriented. Patient denied chest pain, palpitation, nausea, vomiting, chills, fever, abdominal pain and dysuria. Patient is nothing by mouth as best evaluated the patient yesterday and patient was not that much alert after extubation. Objective Current Medications: Current Medications Sig/Davon Start time Last Medication Dose Route Stop Time Status Admin Albuterol Sulfate 3 ML BID 02/25 0900 02/27 INH 0928 Ceftazidime 1,000 MG Q8H 02/25 1300 AC 02/27 IV 0408 Dexmedetomidine HCl 400 MCG Q8H 02/26 1200 DC Sodium Chloride 96 ML IV Dexmedetomidine HCl 400 MCG Q8H 02/25 0900 MT 02/26 Sodium Chloride 96 ML IV 02/26 1159 0255 Docusate Sodium 100 MG DAILY NEEDED PRN 02/22 1115 AC PO Fentanyl Citrate 1,000 MCG Q17H 02/27 0500 02/27 Dextrose/Water 250 ML IV 0409 Fentanyl Citrate 1,000 MCG Q7H 02/26 0230 MT 02/26 Dextrose/Water 250 ML IV 02/27 0500 1132 Folic Acid 1 MG DAILY 02/21 1024 02/27 PO 0857 Heparin Sodium 25,000 UNIT Q24H 02/25 1115 02/26 (Porcine) IV 1101 Sodium Chloride 500 ML Melatonin 10 MG AT BEDTIME NEED.. 02/27 0145 02/27 PO 0136 Melatonin 0 .STK-MED ONE 02/27 0136 DC PO Multivitamins 1 TAB DAILY 02/21 1024 02/27 PO 0856 Norepinephrine 4 MG Q24H 02/25 1930 MT 02/25 Sodium Chloride 250 ML IV 2208 Olanzapine 5 MG ONCE ONE 02/26 1745 DC 02/26 IM 02/26 1746 1811 Oxycodone HCl 5 MG TID 02/24 1006 02/27 PO 0857 Pantoprazole Sodium 40 MG DAILY 02/20 0900 02/27 IV 0857 Polyethylene Glycol 17 GM DAILY 02/22 1130 AC 02/27 PO 0857 Senna 187 MG AT BEDTIME PRN 02/22 1115 02/22 PO 1250 Vancomycin HCl 1,000 MG Q12H 02/26 0600 AC 02/27 Sodium Chloride 250 ML IV 0611 Vital Signs & I&O Last 24 Hrs of Vitals and I&O: Vital Signs Date Time Temp Pulse Resp B/P B/P Pulse O2 O2 Flow FiO2 Mean Ox Delivery Rate 02/27 0931 95 Room Air Room Air 02/27 0600 98.1 98 34 141/64 02/27 0400 98.1 96 18 122/72 02/27 0400 97 Nasal 2.0L Cannula 02/27 0200 98.4 92 22 134/66 02/27 0000 98.4 98 22 134/74 02/27 0000 98.4 98 22 134/74 99 Nasal 2.0L Cannula 02/27 0000 99 Nasal 2.0L Cannula 02/26 2200 98.0 106 23 143/67 02/26 2000 98.0 102 22 128/72 02/26 2000 98 Nasal 2.0L Cannula 02/26 1730 99 Nasal 2.0L Cannula 02/26 1600 97 Nasal 3.5L Cannula 02/26 1600 97.9 100 18 128/60 96 Nasal 2.0L Cannula 02/26 1200 96 Nasal 2.0L Cannula Intake & Output 02/27 1600 02/27 0800 02/27 0000 Intake Total 548 517 Output Total 1100 1999 Balance -552 -1483 Intake, IV 548 517 Output, Urine 1100 1999 Impression/Plan Impression/Plan Impression/Plan: She is awake and alert, in no acute distress Lungs are clear Heart regular rhythm with no murmur Abdomen soft, nontender with positive bowel sounds Extremities trace edema all extremities; PICC in the right upper extremity with no inflammation at the site Shine catheter remains in place IMPRESSION Resolved respiratory failure with bilateral pulmonary edema seems to have improved Bilateral pulmonary emboli with positive troponin now stable Right upper extremity DVT Chronic anemia without overt bleeding Severe acute renal insufficiency and acute kidney injury now completely resolved Initial hypotension with metabolic abnormality stable Chronic pain with chronic opioid use in the past Noncardiogenic versus cardiogenic pulmonary edema with bilateral interstitial infiltrates now seems to be resolving. Unlikely pneumonia RECOMMENDATION Continue current therapy DC Shine If all cultures are negative consider discontinuing antibiotics Continue heparin If stable switch her to Lovenox 1.5 mg per KG body weight daily Check all stool for heme Check iron studies if not already done Continue proton pump inhibitor Swallow evaluation Aggressive bowel regimen We will follow closely Keep in ICU today TTS 38 mins
--- NOTE | 2018-02-27 11:43 | PN- Cardiology ---
Subjective Subjective: * Doing much better. Patient is lucid and responsive and denies any symptoms of chest discomfort, shortness of breath, lightheadedness or palpitations. * sinus rhythm * cardiac enzymes are coming down * low H/H Objective Vital Signs and I&Os Vital Signs Date Time Temp Pulse Resp B/P B/P Pulse O2 O2 Flow FiO2 Mean Ox Delivery Rate 02/27 0931 95 Room Air Room Air 02/27 0600 98.1 98 34 141/64 02/27 0400 98.1 96 18 122/72 02/27 0400 97 Nasal 2.0L Cannula 02/27 0200 98.4 92 22 134/66 02/27 0000 98.4 98 22 134/74 02/27 0000 98.4 98 22 134/74 99 Nasal 2.0L Cannula 02/27 0000 99 Nasal 2.0L Cannula 02/26 2200 98.0 106 23 143/67 02/27 2000 98.0 102 22 128/72 02/26 2000 98 Nasal 2.0L Cannula 02/26 1730 99 Nasal 2.0L Cannula 02/26 1600 97 Nasal 3.5L Cannula 02/26 1600 97.9 100 18 128/60 96 Nasal 2.0L Cannula 02/26 1200 96 Nasal 2.0L Cannula Intake & Output 02/27 1600 02/27 0800 02/27 0000 02/26 1600 02/26 0800 02/26 0000 Intake Total 548 607 890 3968 3570.3 Output Total 1100 1999 640 363 388 Balance -552 -1483 -384 193 3158.3 Intake, Blood 350 Product Intake, IV 548 219 449 7485 3120.3 Intake, Other 100 Number 1 Bowel Movements Output, Urine 1100 1999 640 363 388 Patient 187 lb Weight Physical Exam: General: WD/WN female in NAD; alert and oriented x 3 HEENT: NC/AT, PERRL, EOMI Neck: no JVD, no carotid bruit Heart: RRR w/o murmur Lungs: clear anteriorly bilaterally ABdomen: soft, NT, +ve bowel sounds Extemities: no edema Assessment/Plan Assessment/Plan * This patient has multiple, mildly elevated troponins without ischemic electrocardiographic changes. She now is communicative and denies chest discomfort. Her positive troponins are almost certainly related to her pulmonary emboli but it is not unreasonable to puruse a stress test in the future when her acute illness has past. Although this patient has a low H/H with a slight downward trend, she will ideally benefit from anticoagulation. Continue IV heparin. Continue telemetry? Yes
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
[2018-02-27 16:00] VITALS: BP 150/74
[2018-02-28] VITALS: BP 150/67
[2018-02-28 05:05] LABS: ABSOLUTE BASOPHIL COUNT 0 /CUMM (0.0-0.2); ABSOLUTE EOSINOPHIL COUNT 0.2 /CUMM (0.0-0.7); ABSOLUTE GRANULOCYTE CT 5.7 /CUMM (1.4-6.5); ABSOLUTE LYMPH COUNT 1.2 /CUMM (1.2-3.4); ABSOLUTE MONOCYTE COUNT 0.8 /CUMM (0.10-0.60); BASOPHIL % 0.3 % (0.0-2.0); EOSINOPHIL % 2.4 % (0-5); GRANULOCYTE % 71.9 % (42.2-75.2); HEMATOCRIT 24.6 % (37-47); MEAN CORPUSCULAR HGB 30.9 PG (27.0-31.0); MEAN CORPUSCULAR HGB CONC 33.5 G/DL (33.0-37.0); MEAN CORPUSCULAR VOLUME 92.2 FL (81.0-99.0); MEAN PLATELET VOLUME 7.7 FL (7.4-10.4); PLATELET COUNT 293 /CUMM (130-400); RBC DISTRIBUTION WIDTH 15.2 % (11.5-14.5); RED BLOOD CELL CT 2.67 /CUMM (4.20-5.40)
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
[2018-02-28 08:00] VITALS: BP 140/80
--- NOTE | 2018-02-28 09:33 | PN- Pulmonary ---
Subjective HPI/Critical Care Issues: Patient treatment hemoglobin is stable and doing much better. She was unable to sleep overnight, denies any acute pain, able to eat well. Able to walk around to the restroom and feels almost back to baseline. Objective Current Medications: Current Medications Sig/Davon Start time Last Medication Dose Route Stop Time Status Admin Albuterol Sulfate 3 ML Q4P PRN 02/28 0915 AC INH Albuterol Sulfate 3 ML BID 02/25 0900 DC 02/27 INH 1952 Ceftazidime 1,000 MG Q8H 02/25 1300 AC 02/28 IV 0413 Docusate Sodium 100 MG DAILY NEEDED PRN 02/22 1115 AC PO Enoxaparin Sodium 100 MG DAILY 02/27 1140 AC 02/28 SC 0844 Enoxaparin Sodium 30 MG DAILY 02/27 1140 AC 02/28 SC 0843 Fentanyl Citrate 1,000 MCG Q24H 02/28 0900 DC Dextrose/Water 250 ML IV Fentanyl Citrate 1,000 MCG Q17H 02/27 0500 DC 02/27 Dextrose/Water 250 ML IV 0409 Folic Acid 1 MG DAILY 02/21 1024 AC 02/28 PO 0843 Heparin Sodium 25,000 UNIT Q24H 02/25 1115 DC 02/26 (Porcine) IV 1101 Sodium Chloride 500 ML Melatonin 10 MG AT BEDTIME NEED.. 02/27 0145 AC 02/27 PO 0136 Morphine Sulfate 30 MG Q12H 02/28 2100 AC PO Multivitamins 1 TAB DAILY 02/21 1024 AC 02/28 PO 0843 Oxycodone HCl 5 MG TID 02/24 1006 DC 02/28 PO 0843 Oxycodone/ 1 TAB Q12P PRN 02/28 09 AC Acetaminophen PO Pantoprazole Sodium 40 MG DAILY 02/20 0900 AC 02/28 IV 0843 Polyethylene Glycol 17 GM DAILY 02/22 1130 AC 02/27 PO 0857 Senna 187 MG AT BEDTIME PRN 02/22 1115 AC 02/22 PO 1250 Vancomycin HCl 1,000 MG Q12H 02/26 0600 DC 02/27 Sodium Chloride 250 ML IV 0611 Venlafaxine HCl 150 MG DAILY 02/28 0900 UNVr PO Vital Signs & I&O Last 24 Hrs of Vitals and I&O: Vital Signs Date Time Temp Pulse Resp B/P B/P Pulse O2 O2 Flow FiO2 Mean Ox Delivery Rate 02/28 906 95 Room Air 02/28 0800 98.4 97 16 140/80 99 Room Air 02/28 0000 98.0 99 20 150/67 92 Room Air 02/27 1957 95 Room Air 02/27 1600 98.0 92 26 150/74 98 Room Air 02/27 0931 95 Room Air Room Air Intake & Output 02/28 1600 02/28 0800 02/28 0000 Intake Total 64.1 290.4 Output Total 800 700 Balance -735.9 -409.6 Intake, IV 64.1 50.4 Intake, Oral 0 240 Output, Urine 800 700 Laboratory Tests 02/28 02/27 0418 1100 Chemistry Sodium (137 - 145 mmol/L) 141 Potassium (3.5 - 5.1 mmol/L) 3.7 Chloride (98 - 107 mmol/L) 106 Carbon Dioxide (22 - 30 mmol/L) 29 Anion Gap (5 - 16) 5 BUN (7 - 17 mg/dL) 9 Creatinine (0.5 - 1.0 mg/dL) 0.5 Estimated GFR (>60 ml/min) > 60 Glucose (65 - 99 mg/dL) 93 Calcium (8.4 - 10.2 mg/dL) 8.6 Phosphorus (2.5 - 4.5 mg/dL) 4.3 Magnesium (1.6 - 2.3 mg/dL) 1.9 Total Bilirubin (0.2 - 1.3 mg/dL) 0.3 AST (14 - 36 U/L) 23 ALT (9 - 52 U/L) 39 Albumin (3.5 - 5.0 g/dL) 2.8 L Coagulation APTT Cancelled Hematology CBC w Diff NO MAN DIFF REQ WBC (4.8 - 10.8 /CUMM) 8.0 RBC (4.20 - 5.40 /CUMM) 2.67 L Hgb (12.0 - 16.0 G/DL) 8.2 L Hct (37 - 47 %) 24.6 L MCV (81.0 - 99.0 FL) 92.2 MCH (27.0 - 31.0 PG) 30.9 MCHC (33.0 - 37.0 G/DL) 33.5 RDW (11.5 - 14.5 %) 15.2 H Plt Count (130 - 400 /CUMM) 293 MPV (7.4 - 10.4 FL) 7.7 Gran % (42.2 - 75.2 %) 71.9 Lymphocytes % (20.5 - 51.1 %) 15.6 L Monocytes % (1.7 - 9.3 %) 9.8 H Eosinophils % (0 - 5 %) 2.4 Basophils % (0.0 - 2.0 %) 0.3 Absolute Granulocytes (1.4 - 6.5 /CUMM) 5.7 Absolute Lymphocytes (1.2 - 3.4 /CUMM) 1.2 Absolute Monocytes (0.10 - 0.60 /CUMM) 0.8 H Absolute Eosinophils (0.0 - 0.7 /CUMM) 0.2 Absolute Basophils (0.0 - 0.2 /CUMM) 0 02/27 02/26 02/26 0415 2250 1330 Chemistry Sodium (137 - 145 mmol/L) 139 Potassium (3.5 - 5.1 mmol/L) 4.0 Chloride (98 - 107 mmol/L) 109 H Carbon Dioxide (22 - 30 mmol/L) 25 Anion Gap (5 - 16) 5 BUN (7 - 17 mg/dL) 9 Creatinine (0.5 - 1.0 mg/dL) 0.6 Estimated GFR (>60 ml/min) > 60 Glucose (65 - 99 mg/dL) 95 Calcium (8.4 - 10.2 mg/dL) 8.8 Phosphorus (2.5 - 4.5 mg/dL) 3.9 Magnesium (1.6 - 2.3 mg/dL) 2.3 Iron (37 - 170 ug/dL) 33 L TIBC (265 - 497 ug/dL) 261 L Ferritin (11.1 - 264 ng/mL) 137.0 Total Bilirubin (0.2 - 1.3 mg/dL) 0.5 AST (14 - 36 U/L) 18 ALT (9 - 52 U/L) 38 Albumin (3.5 - 5.0 g/dL) 2.6 L Coagulation APTT (25 - 37 SEC) 79 H 52 H Hematology CBC w Diff NO MAN DIFF REQ WBC (4.8 - 10.8 /CUMM) 8.3 RBC (4.20 - 5.40 /CUMM) 2.48 L Hgb (12.0 - 16.0 G/DL) 7.7 L Hct (37 - 47 %) 22.7 L MCV (81.0 - 99.0 FL) 91.5 MCH (27.0 - 31.0 PG) 31.0 MCHC (33.0 - 37.0 G/DL) 33.9 RDW (11.5 - 14.5 %) 15.1 H Plt Count (130 - 400 /CUMM) 228 MPV (7.4 - 10.4 FL) 7.6 Gran % (42.2 - 75.2 %) 71.8 Lymphocytes % (20.5 - 51.1 %) 14.9 L Monocytes % (1.7 - 9.3 %) 10.1 H Eosinophils % (0 - 5 %) 3.1 Basophils % (0.0 - 2.0 %) 0.1 Absolute Granulocytes (1.4 - 6.5 /CUMM) 5.9 Absolute Lymphocytes (1.2 - 3.4 /CUMM) 1.2 Absolute Monocytes (0.10 - 0.60 /CUMM) 0.8 H Absolute Eosinophils (0.0 - 0.7 /CUMM) 0.3 Absolute Basophils (0.0 - 0.2 /CUMM) 0 Retic Count (0.5 - 2.0 %) 2.71 H 02/26 1000 Blood Gas pH (7.35 - 7.45 PH) 7.46 H pCO2 (35 - 45 TORR) 29 L pO2 (80 - 100 TORR) 147 H HCO3 (21 - 28 MEQ/L) 21 ABG O2 Sat (Measured) (>96.0 %) 98.0 P-50 (Temp Corrected) N Carboxyhemoglobin (1.5 - 5.0 %) 0.4 L O2 Concentration % 30% Temperature (97.0 - 100.0 FARH) 97.6 O2 Delivery Method T-PIECE Miscellaneous Phlebotomy Draw Site RIGHT RADIAL Microbiology Date/Time Procedure - Status Source Growth 02/26 0500 Urine Culture - RES URINE ROUT 02/25 1640 Surveillance Culture - COMP UPPER RESP 02/25 1635 Surveillance Culture - CAN UPPER RESP Cancelled: DUPLICATE 02/25 1630 Respiratory Culture - COMP LOWER RESP YEAST 02/25 1630 Gram Stain - COMP LOWER RESP Impression/Plan Impression/Plan Impression/Plan: She is awake and alert, in no acute distress Lungs are clear Heart regular rhythm with no murmur Abdomen soft, nontender with positive bowel sounds Extremities trace edema all extremities; PICC in the right upper extremity with no inflammation at the site Shine catheter remains in place IMPRESSION Resolved respiratory failure with bilateral pulmonary edema seems to have improved Bilateral pulmonary emboli with positive troponin now stable Right upper extremity DVT Chronic anemia without overt bleeding Severe acute renal insufficiency and acute kidney injury now completely resolved Initial hypotension with metabolic abnormality stable Chronic pain with chronic opioid use in the past Noncardiogenic versus cardiogenic pulmonary edema with bilateral interstitial infiltrates now seems to be resolving. Unlikely pneumonia RECOMMENDATION Continue current therapy Ok to the floor DC vanco and ceftaz for five days total Lovenox 1.5 mg per KG body weight daily after five days total of heparin/lovenox can go on regular dose NOACs (no loading needed) Check all stool for heme Iron 325 bid qod Continue proton pump inhibitor Aggressive bowel regimen OK to the floor
--- NOTE | 2018-02-28 11:20 | PN- Cardiology ---
Subjective Subjective: * Patient reports a cough without shortness of breath. No chest discomfort. * persistent anemia Objective Vital Signs and I&Os Vital Signs Date Time Temp Pulse Resp B/P B/P Pulse O2 O2 Flow FiO2 Mean Ox Delivery Rate 02/28 0906 95 Room Air 02/28 0800 98.4 97 16 140/80 99 Room Air 02/28 0000 98.0 99 20 150/67 92 Room Air 02/27 1957 95 Room Air 02/27 1600 98.0 92 26 150/74 98 Room Air Intake & Output 02/28 1600 02/28 0800 02/28 0000 02/27 1600 02/27 0800 02/27 0000 Intake Total 64.1 290.4 725 548 517 Output Total 800 769 443 8812 1999 Balance -735.9 -409.6 185 -552 -1483 Intake, IV 64.1 50.4 285 548 517 Intake, Oral 0 240 440 Output, Urine 800 656 067 6568 1999 Physical Exam: General: WD/WN female in NAD; alert and oriented x 3 HEENT: NC/AT, PERRL, EOMI Neck: no JVD, no carotid bruit Heart: RRR w/o murmur Lungs: decreased air movement without crackles or wheezing bilaterally ABdomen: soft, NT, +ve bowel sounds Extemities: no edema Assessment/Plan Assessment/Plan * This patient had multiple, mildly elevated troponins without ischemic electrocardiographic changes. She now is communicative and denies chest discomfort. Her positive troponins are almost certainly related to her pulmonary emboli but it is not unreasonable to puruse a stress test in the future when her acute illness has past. Although this patient has a low H/H with a slight downward trend, she will ideally benefit from anticoagulation. Continue IV heparin. A change can be made to a care home oral anticoagulant if there is a stable H/H with no evidence of active bleeding. Continue telemetry? No
[2018-02-28 16:00] VITALS: BP 140/80
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
[2018-02-28 21:51] VITALS: BP 142/86
[2018-03-01 06:23] VITALS: BP 148/86
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
--- NOTE | 2018-03-01 09:23 | PN- Pulmonary ---
Subjective HPI/Critical Care Issues: The patient is awake and alert. She reports feeling improved overall. Her cough is less and she is now on room air. She denies any chest pain, fever, chills, wheezing or worsening sputum production. There were no overnight events reported. She is now ambulating well. Objective Current Medications: Current Medications Sig/Davon Start time Last Medication Dose Route Stop Time Status Admin Albuterol Sulfate 3 ML Q4P PRN 02/28 0915 AC INH Ceftazidime 1,000 MG Q8H 02/25 1300 DC 02/28 IV 1309 Diphenhydramine HCl 25 MG ONCE ONE 02/28 1630 DC 02/28 IV 02/28 1631 1718 Docusate Sodium 100 MG DAILY NEEDED PRN 02/22 1115 AC PO Enoxaparin Sodium 100 MG DAILY 02/27 1140 AC 03/01 SC 0813 Enoxaparin Sodium 30 MG DAILY 02/27 1140 AC 03/01 SC 0813 Ferrous Sulfate 325 MG DAILY 02/28 1630 AC 03/01 PO 0812 Folic Acid 1 MG DAILY 02/21 1024 AC 03/01 PO 0812 Melatonin 10 MG AT BEDTIME NEED.. 02/27 0145 AC 02/27 PO 0136 Morphine Sulfate 30 MG Q12H 02/28 2100 AC 03/01 PO 0812 Multivitamins 1 TAB DAILY 02/21 1024 AC 03/01 PO 0812 Omeprazole 40 MG DAILY AC 03/01 0700 AC 03/01 PO 0524 Oxycodone/ 1 TAB Q12P PRN 02/28 0900 AC Acetaminophen PO Pantoprazole Sodium 40 MG DAILY 02/20 0900 DC 02/28 IV 0843 Polyethylene Glycol 17 GM DAILY 02/22 1130 AC 02/27 PO 0857 Senna 187 MG AT BEDTIME PRN 02/22 1115 AC 02/22 PO 1250 Venlafaxine HCl 150 MG DAILY 02/28 0900 AC 03/01 PO 0812 Vital Signs & I&O Last 24 Hrs of Vitals and I&O: Vital Signs Date Time Temp Pulse Resp B/P B/P Pulse O2 O2 Flow FiO2 Mean Ox Delivery Rate 03/01 06 97.5 82 20 148/86 94 Room Air 02/28 2151 98.4 72 18 142/86 96 Room Air 02/28 1659 95 Room Air Room Air 02/28 1600 98.4 90 22 140/80 95 Room Air Intake & Output 03/01 1600 / 0800 / 0000 Intake Total 240 240 Output Total Balance 240 240 Intake, Oral 240 240 Exam General Appearance: Awake, alert, comfortable, no dyspnea Head: atraumatic Neck: supple Respiratory: Improved bilateral air entry, few faint rhonchi are heard scattered throughout Cardiovascular: regular rate/rhythm Abdomen: normal bowel sounds, soft, non-tender Extremities: no edema Skin: intact, normal color, warm/dry Results Last 24 Hrs of Lab Results: No current laboratory studies available. Impression/Plan Impression/Plan Impression/Plan: 1. Resolved respiratory failure, now on room air. 2. Acute pulmonary emboli, provoked, on Lovenox. 3. Right upper extremity DVT. 4. Anemia, without evidence of active bleeding, status post transfusion 1 unit. 5. Acute kidney injury, improved. 6. History of chronic back pain, opiates restarted. 7. Anemia without evidence of active bleeding. Recommendations: * The patient will require a follow-up CT scan of the chest in 8 weeks. My office will order this study. * Monitor off antibiotics per ID. * Convert to oral anticoagulant. * Increase activity, ambulate. * Medical management/anemia workup as per primary team. * Discharge planning.
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
[2018-03-01] MEDS ORDERED: ONE DAILY MULT1 EAC2 PO (12:38)
[2018-03-01] MEDS ORDERED: FERROUS SULFAT325 M2 PO (12:38)
[2018-03-01] MEDS ORDERED: MIRALAX119 GM PO (12:38)
--- NOTE | 2018-03-01 12:40 | Patient Discharge Instructions ---
Discharge Instructions General Discharge Information You were seen/treated for: Acute kidney injury You had these procedures: Intubation/extubation Central line placement/removal Watch for these problems: Fevers chills shortness of breath chest pain Special Instructions: -Please follow-up with your primary care within a week of discharge. -Please follow-up with vault clerk Dr. Menezes after discharge -You are being started on anticoagulation pill for a blood clot in your lung, please take that regularly for a month according to the instructions. Please follow up with your PCP for refills. Diet Continue normal diet: Yes Activity Activity Self Limited: Yes Acute Coronary Syndrome Inclusion Criteria At DC or during hospital stay patient has or had the following: ACS DIAGNOSIS No Discharge Core Measures Meds if any: Prescribed or Continued at Discharge Meds if any: NOT Prescribed or Continued at Discharge Congestive Heart Failure Inclusion Criteria At DC or during hospital stay patient has or had the following: CHF DIAGNOSIS No Discharge Core Measures Meds if any: Prescribed or Continued at Discharge Meds if any: NOT Prescribed or Continued at Discharge Cerebrovascular accident Inclusion Criteria At DC or during hospital stay patient has or had the following: CVA/TIA Diagnosis No Discharge Core Measures Meds if any: Prescribed or Continued at Discharge Meds if any: NOT Prescribed or Continued at Discharge Venous thromboembolism Inclusion Criteria VTE Diagnosis Yes VTE Type Pulmonary Embolism VTE Confirmed by (Test) CT CHEST ANGIOGRAM Discharge Core Measures - Per Current guidelines, there needs to be overlap - treatment for the first 5 days of Warfarin therapy. - If discharged on Warfarin prior to 5 days of - overlap therapy, the patient will need to be - assessed for post discharge needs including - *Post discharge parental anticoagulation - *Warfarin and/or parental anticoagulation education - *Follow up date to check INR post discharge At least 5 days overlap therapy as Inpatient Yes Meds if any: Prescribed or Continued at Discharge Note: Overlap Therapy is Warfarin and Anticoagulant Meds if any: NOT Prescribed or Continued at Discharge
--- NOTE | 2018-03-01 12:48 | PN- Infect Dx ---
Subjective Subjective: Afebrile. She feels well with no complaints. She does note a persistent mild cough. Objective Last 24 Hrs of Vital Signs/I&O Vital Signs Date Time Temp Pulse Resp B/P B/P Pulse O2 O2 Flow FiO2 Mean Ox Delivery Rate 03/01 1041 94 Room Air 03/01 0917 Room Air 03/01 0623 97.5 82 20 148/86 94 Room Air 02/28 2151 98.4 72 18 142/86 96 Room Air 02/28 1659 95 Room Air Room Air 02/28 1600 98.4 90 22 140/80 95 Room Air Intake & Output 03/01 1600 03/01 0800 03/01 0000 Intake Total 240 240 Output Total Balance 240 240 Intake, Oral 240 240 Physical Exam Other Physical Findings: She appears comfortable in no acute distress Lungs crackles at the right base Heart regular rhythm with no murmur Extremities no cyanosis, clubbing or edema Results Last 24 Hours of Lab Results: Laboratory Tests 02/28 0418 Chemistry Sodium (137 - 145 mmol/L) 141 Potassium (3.5 - 5.1 mmol/L) 3.7 Chloride (98 - 107 mmol/L) 106 Carbon Dioxide (22 - 30 mmol/L) 29 Anion Gap (5 - 16) 5 BUN (7 - 17 mg/dL) 9 Creatinine (0.5 - 1.0 mg/dL) 0.5 Estimated GFR (>60 ml/min) > 60 Glucose (65 - 99 mg/dL) 93 Calcium (8.4 - 10.2 mg/dL) 8.6 Phosphorus (2.5 - 4.5 mg/dL) 4.3 Magnesium (1.6 - 2.3 mg/dL) 1.9 Total Bilirubin (0.2 - 1.3 mg/dL) 0.3 AST (14 - 36 U/L) 23 ALT (9 - 52 U/L) 39 Albumin (3.5 - 5.0 g/dL) 2.8 L Hematology CBC w Diff NO MAN DIFF REQ WBC (4.8 - 10.8 /CUMM) 8.0 RBC (4.20 - 5.40 /CUMM) 2.67 L Hgb (12.0 - 16.0 G/DL) 8.2 L Hct (37 - 47 %) 24.6 L MCV (81.0 - 99.0 FL) 92.2 MCH (27.0 - 31.0 PG) 30.9 MCHC (33.0 - 37.0 G/DL) 33.5 RDW (11.5 - 14.5 %) 15.2 H Plt Count (130 - 400 /CUMM) 293 MPV (7.4 - 10.4 FL) 7.7 Gran % (42.2 - 75.2 %) 71.9 Lymphocytes % (20.5 - 51.1 %) 15.6 L Monocytes % (1.7 - 9.3 %) 9.8 H Eosinophils % (0 - 5 %) 2.4 Basophils % (0.0 - 2.0 %) 0.3 Absolute Granulocytes (1.4 - 6.5 /CUMM) 5.7 Absolute Lymphocytes (1.2 - 3.4 /CUMM) 1.2 Absolute Monocytes (0.10 - 0.60 /CUMM) 0.8 H Absolute Eosinophils (0.0 - 0.7 /CUMM) 0.2 Absolute Basophils (0.0 - 0.2 /CUMM) 0 Last 24 Hours of [place] Results: Urine culture February 26 negative Blood cultures 2 February 25 negative Sputum culture February 25 mixed james with scant growth of yeast Assessment/Plan ID Impression: Stable, with her temperatures and white blood cell count remaining normal, off antibiotics for 24 hours after 3 days of empiric treatment for a possible healthcare associated pneumonia though, given her rapid improvement, her respiratory distress was most likely secondary to fluid overload. She is now on Lovenox for the recently diagnosed pulmonary emboli, which may have caused her fever. Suggestion: 1. Continue to follow off antibiotics
[2018-03-01] MEDS ORDERED: ELIQUIS5 M1 PO (13:11)
== END 2018-03-01 14:00 | DRG 682 ==
LOC: ERH 15:42 → CRI 18:42 → ERHI 18:42 → ENRESERV 19:12 → ENTRNSPT 20:10 → 1NO 20:18 → EDTRNSPT 20:21 → EDTRNSPTSTS 20:21 → CMPTRNSPT 20:29 → CRI 20:31 → ENTRNSPT 02-28 21:04 → 2NA 02-28 21:25 → CMPTRNSPT 02-28 21:33 → 2NA 03-01 08:03 → ENPENDDIS 03-01 13:37 → 2NA 03-01 14:00
PROVIDERS: Internal Medicine; Internal Medicine Pulmonary Disease; Physician Assistant Medical; Preventive Medicine Public Health & General Preventive Medicine; Student in an Organized Health Care Education/Training Program
PROC: 0BH17EZ Insertion of Endotracheal Airway into Trachea, Via Natural or Artificial Opening (ICD-10-PCS; principal; 2018-02-19)
PROC: 5A1955Z Respiratory Ventilation, Greater than 96 Consecutive Hours (ICD-10-PCS; principal; 2018-02-19)
PROC: 06H033Z Insertion of Infusion Device into Inferior Vena Cava, Percutaneous Approach (ICD-10-PCS; 2018-02-19)
PROC: 05HY33Z Insertion of Infusion Device into Upper Vein, Percutaneous Approach (ICD-10-PCS; 2018-02-19)
PROC: 5A1D70Z Performance of Urinary Filtration, Intermittent, Less than 6 Hours Per Day (ICD-10-PCS; 2018-02-19)
PROC: 02HV33Z Insertion of Infusion Device into Superior Vena Cava, Percutaneous Approach (ICD-10-PCS; 2018-02-23)
DX: N17.9 Acute kidney failure, unspecified (principal); R57.1 Hypovolemic shock; G92 Toxic encephalopathy; J96.01 Acute respiratory failure with hypoxia; I26.99 Other pulmonary embolism without acute cor pulmonale; E87.2 Acidosis; I24.8 Other forms of acute ischemic heart disease; M62.82 Rhabdomyolysis; I82.611 Acute embolism and thrombosis of superficial veins of right upper extremity; I95.9 Hypotension, unspecified; E87.5 Hyperkalemia; E83.39 Other disorders of phosphorus metabolism; E87.70 Fluid overload, unspecified; I10 Essential (primary) hypertension; G25.81 Restless legs syndrome; F32.9 Major depressive disorder, single episode, unspecified; G89.29 Other chronic pain; E86.0 Dehydration; D64.9 Anemia, unspecified; R25.1 Tremor, unspecified; Z87.81 Personal history of (healed) traumatic fracture; Z88.8 Allergy status to other drugs, medicaments and biological substances; Z88.0 Allergy status to penicillin
CPT/HCPCS: 2NASP; 84133; 84300; CCU; 36415; 36592; 71045; 74177; 76775; 77001; 80307; 81001; 82436; 82570; 86920; 87040; 87070; 87071; 87086; 93005; 93010; 93306; 94799; 95816; 96374; 99291; C1769; G0480; J0713; J1200; J1644; J1650; J1815; J2001; J2060; J2280; J2997; J3010; J3370; J3490; J7040; J7042; J7060; P9016